=== PATIENT | female | born 1970 | race Caucasian/White ===

== ENCOUNTER 2020-07-19 03:37 | Emergency (ER) | payer MEDICAID ==
[~2020-07-19] VITALS: Ht 152.4 cm; Wt 73.0 kg
== END 2020-07-19 03:50 | disposition left against medical advice (07) ==
LOC: ER 03:49
DX: Z53.21 Procedure and treatment not carried out due to patient leaving prior to being seen by health care provider (principal)

== ENCOUNTER 2020-07-19 05:36 | Inpatient (IN) | payer MEDICAID, MEDICARE ==
[~2020-07-19] VITALS: Ht 152.4 cm; Wt 139.3 kg
[2020-07-19] MEDS ORDERED: ONDANSETRON HCL 4MG/2ML INJ IV STA (05:57)
[2020-07-19] MEDS ORDERED: MORPHINE SULFATE 4 MG/ML CPJ (NOT FOR IM USE) IV STA (05:57)
[2020-07-19] MEDS ORDERED: HALOPERIDOL LACTATE 5MG/ML VIAL IM STA (06:15)
[2020-07-19] MEDS ORDERED: LORAZEPAM 2MG/ML CPJ IM STA (06:15)
[2020-07-19 06:33] LABS: BASOPHILS % 0.5 % (0.0-2.0); EOSINOPHILS % 0.6 % (0.0-5.0); HEMATOCRIT. 41.8 % (36.0-48.0); HEMOGLOBIN. 13.8 g/dL (12.0-16.0); LYMPHOCYTES % 17.5 % (20.0-50.0); MEAN CORPUSCULAR HEMOGLOBIN 30.8 pg (28.0-32.0); MEAN CORPUSCULAR VOLUME 93.1 fL (81.0-99.0); MEAN PLATELET VOLUME 7.4 fl (7.4-10.4); MONOCYTES % 7.7 % (2.0-8.0); NEUTROPHILS % 73.7 % (40.0-76.0); PLATELET 295 x1000/uL (130-400); RED BLOOD CELL COUNT 4.49 mill/uL (4.2-5.4); RED CELL DISTRIBUTION WIDTH 13.9 % (11.6-14.6)
[2020-07-19 06:36] LABS: CHLORIDE 108 mEq/L (98-107)
[2020-07-19 06:41] LABS: ETHANOL BLOOD < 10 mg/dL
[2020-07-19 06:49] LABS: HCG SCREEN NEGATIVE
[2020-07-19] MEDS ORDERED: SODIUM CHLORIDE 0.9% 1,000 ML IV ONE ×3 (08:30→12:15)
[2020-07-19] MEDS ORDERED: KETAMINE HCL 50 MG/ML 10ML IV ONE (08:30)
[2020-07-19] MEDS ORDERED: MORPHINE SULFATE 10 MG/ML CPJ IV ONE (08:30)
[2020-07-19] MEDS ORDERED: PROPOFOL 200MG/20ML VIAL IV ONE (08:30)
[2020-07-19] MEDS ORDERED: LORAZEPAM 2MG/ML CPJ IV ONE (13:15)
[2020-07-19 13:52] LABS: BG BASE EXCESS -1.2 mmol/L (-2.0-2.0); BG CARBOXYHEMOGLOBIN 0.4 % (0.5-1.5); BG DEOXYHEMOGLOBIN 1.6 % (0.0-5.0); BG HCO3 ACT 27.7 mmol/L (22.0-26.0); BG METHEMOGLOBIN 0.2 % (0.0-1.5); BG OXYGEN SATURATION 98.4 % (92.0-98.5); BG OXYHEMOGLOBIN 97.8 % (94.0-97.0); BG PCO2 65.4 mmHg (35.0-45.0); BG PH 7.244 (7.350-7.450); BG PO2 136.1 mmHg (75.0-100.0); BG SAMPLE SITE LEFT RADIAL; BG TOTAL HEMOGLOBIN 14.2 g/dL (12.0-18.0); BG VENT MODE NASAL CANNULA
[2020-07-19] MEDS ORDERED: ETOMIDATE 2MG/ML 10ML VIAL IV ONE (14:30)
[2020-07-19] MEDS ORDERED: SUCCINYLCHOLINE CHLORIDE 200MG/10ML IV ONE (14:30)
[2020-07-19] MEDS ORDERED: SODIUM BICARBONATE 8.4% 1 MEQ/ML 50ML SYR IV ONE (14:30)
[2020-07-19] MEDS ORDERED: PROPOFOL 10MG/ML 100ML 100 ML IV SCH (14:30)
[2020-07-19 15:44] LABS: CREATINE KINASE 387 IU/L (26-192)
[2020-07-19 16:05] LABS: BG BASE EXCESS 2.8 mmol/L (-2.0-2.0); BG CARBOXYHEMOGLOBIN 0.2 % (0.5-1.5); BG DEOXYHEMOGLOBIN 4.2 % (0.0-5.0); BG FRACTION INSPIRED OXYGEN 60; BG HCO3 ACT 29.8 mmol/L (22.0-26.0); BG METHEMOGLOBIN 0.2 % (0.0-1.5); BG OXYGEN SATURATION 95.8 % (92.0-98.5); BG OXYHEMOGLOBIN 95.4 % (94.0-97.0); BG PCO2 56.3 mmHg (35.0-45.0); BG PH 7.342 (7.350-7.450); BG PO2 83.8 mmHg (75.0-100.0); BG SAMPLE SITE LEFT RADIAL; BG TOTAL HEMOGLOBIN 13.7 g/dL (12.0-18.0); BG TOTAL RESPIRATORY RATE 21 b/min; BG VENT MODE VENT - AC
[2020-07-19] MEDS ORDERED: DOCUSATE SODIUM 100MG CAPSULE PO PRN (16:45)
[2020-07-19] MEDS ORDERED: PROPOFOL 10MG/ML 100ML 100 ML IV PRN (16:45)
[2020-07-19] MEDS ORDERED: NA PHOS,M-B/NA PHOS,DI-BA ENEMA 118ML PR PRN (16:45)
[2020-07-19] MEDS ORDERED: PIPERACILLIN/TAZOBACTAM 3.375 G in DEXT 5% WATER 100 ML IV SCH (16:45)
[2020-07-19] MEDS ORDERED: CLONIDINE 0.1MG TABLET PO PRN (16:45)
[2020-07-19] MEDS ORDERED: ONDANSETRON HCL 4MG/2ML INJ IV PRN (16:45)
[2020-07-19] MEDS ORDERED: GUAIFENESIN 200MG/10ML SUGAR FREE UDC PO PRN (16:45)
[2020-07-19] MEDS ORDERED: LORAZEPAM 0.5MG TABLET PO PRN (16:45)
[2020-07-19] MEDS ORDERED: HYDROCODONE/ACETAMINOPHEN 5/325MG TABLET PO PRN (16:45)
[2020-07-19] MEDS ORDERED: DIPHENHYDRAMINE 50MG/ML VIAL IV PRN (16:45)
[2020-07-19] MEDS ORDERED: MAGNESIUM/ALUMINUM HYDROXIDE/SIMETHICONE 30ML UDC PO PRN (16:45)
[2020-07-19] MEDS: DEXT 5%/0.45% NACL 1000ML 1,000 ML IV SCH (17:49)
[2020-07-19] MEDS: PIPERACILLIN/TAZ 3.375G PREMIX 50 ML IV SCH (17:49)
[2020-07-19 18:14] LABS: PROTHROMBIN TIME 10.9 sec (9.6-11.0)
[2020-07-20] MEDS: PIPERACILLIN/TAZ 3.375G PREMIX 50 ML IV SCH ×4 (00:01→18:00)
[2020-07-20 00:52] LABS: CREATINE KINASE 593 IU/L (26-192)
[2020-07-20 01:05] LABS: CREATINE KINASE MB FRACTION 4.3 ng/mL (0.5-3.6)
[2020-07-20 04:35] LABS: BASOPHILS % 0.3 % (0.0-2.0); EOSINOPHILS % 1.8 % (0.0-5.0); HEMATOCRIT. 38.9 % (36.0-48.0); HEMOGLOBIN. 12.5 g/dL (12.0-16.0); LYMPHOCYTES % 21.8 % (20.0-50.0); MEAN CORPUSCULAR HEMOGLOBIN 30.4 pg (28.0-32.0); MEAN CORPUSCULAR VOLUME 94.7 fL (81.0-99.0); MEAN PLATELET VOLUME 7.4 fl (7.4-10.4); MONOCYTES % 8.6 % (2.0-8.0); NEUTROPHILS % 67.5 % (40.0-76.0); PLATELET 266 x1000/uL (130-400); RED BLOOD CELL COUNT 4.11 mill/uL (4.2-5.4); RED CELL DISTRIBUTION WIDTH 13.9 % (11.6-14.6)
[2020-07-20 04:42] LABS: CHLORIDE 108 mEq/L (98-107)
[2020-07-20 04:52] LABS: LDL CHOLESTEROL 75 mg/dL (5-100)
[2020-07-20 04:53] LABS: CREATINE KINASE 515 IU/L (26-192); T4 FREE 1.21 ng/dL (0.76-1.46)
[2020-07-20 04:54] LABS: CREATINE KINASE MB FRACTION 3.1 ng/mL (0.5-3.6); HDL CHOLESTEROL 48 mg/dL (40-59)
[2020-07-20] MEDS: DEXT 5%/0.45% NACL 1000ML 1,000 ML IV SCH ×2 (05:22→20:40)
[2020-07-20 08:35] LABS: BG BASE EXCESS 2.4 mmol/L (-2.0-2.0); BG CARBOXYHEMOGLOBIN 0.3 % (0.5-1.5); BG DEOXYHEMOGLOBIN 1.2 % (0.0-5.0); BG FRACTION INSPIRED OXYGEN 60; BG HCO3 ACT 27.3 mmol/L (22.0-26.0); BG METHEMOGLOBIN 0.4 % (0.0-1.5); BG OXYGEN SATURATION 98.8 % (92.0-98.5); BG OXYHEMOGLOBIN 98.1 % (94.0-97.0); BG PCO2 43.4 mmHg (35.0-45.0); BG PH 7.416 (7.350-7.450); BG PO2 132.3 mmHg (75.0-100.0); BG SAMPLE SITE RIGHT RADIAL; BG VENT MODE VENT - AC
[2020-07-20] MEDS: FAMOTIDINE 20MG/2ML VIAL IV SCH (09:43)
[2020-07-20] MEDS ORDERED: POTASSIUM CHLORIDE INJ 40 MEQ in DEXT 5% WATER 250 ML IV NR (13:00)
[2020-07-20 16:33] LABS: CLARITY URINE CLEAR (CLEAR); COLOR URINE YELLOW (YELLOW); KETONES URINE NEGATIVE (NEGATIVE); LEUKOCYTE ESTERASE URINE NEGATIVE (NEGATIVE); NITRITE URINE NEGATIVE (NEGATIVE); OCCULT BLOOD URINE NEGATIVE (NEGATIVE); PH URINE 6.5 (4.5-8.0); PROTEIN URINE NEGATIVE (NEGATIVE); SPECIFIC GRAVITY URINE 1.008 (1.005-1.030); UROBILINOGEN URINE 0.2 E.U./dL (0.2-1.0)
[2020-07-20 17:27] LABS: *AMPHETAMINES SCREEN URINE PRESUMTIVE POSITIVE (NEGATIVE)
[2020-07-20 17:29] LABS: *BARBITURATES SCREEN URINE NEGATIVE (NEGATIVE)
[2020-07-20 17:30] LABS: METHADONE URINE SCREEN NEGATIVE (NEGATIVE)
[2020-07-20 17:32] LABS: *BENZODIAZEPINES SCREEN URINE NEGATIVE (NEGATIVE); *COCAINE SCREEN URINE NEGATIVE (NEGATIVE); CANNABINOID URINE SCREEN NEGATIVE (NEGATIVE); OPIATES URINE SCREEN PRESUMTIVE POSITIVE (NEGATIVE)
[2020-07-20 17:33] LABS: PHENCYCLIDINE URINE SCREEN PRESUMTIVE POSITIVE (NEGATIVE)
[2020-07-20 18:35] LABS: BG BASE EXCESS 3.1 mmol/L (-2.0-2.0); BG DEOXYHEMOGLOBIN 1.2 % (0.0-5.0); BG FRACTION INSPIRED OXYGEN 60; BG HCO3 ACT 28.5 mmol/L (22.0-26.0); BG METHEMOGLOBIN 0.3 % (0.0-1.5); BG OXYGEN SATURATION 98.8 % (92.0-98.5); BG OXYHEMOGLOBIN 98.5 % (94.0-97.0); BG PCO2 46.7 mmHg (35.0-45.0); BG PH 7.404 (7.350-7.450); BG PO2 148.9 mmHg (75.0-100.0); BG SAMPLE SITE LEFT RADIAL; BG TOTAL HEMOGLOBIN 13.4 g/dL (12.0-18.0); BG VENT MODE VENT - AC
[2020-07-20] MEDS ORDERED: FENTANYL CITRATE 2,500 MCG in SODIUM CHLORIDE 0.9% 200 ML IV PRN (18:45)
[2020-07-20] MEDS ORDERED: MIDAZOLAM HCL 100 MG in DEXT 5% WATER 100 ML IV PRN (19:00)
[2020-07-21 04:06] LABS: BASOPHILS % 0.2 % (0.0-2.0); EOSINOPHILS % 6.5 % (0.0-5.0); HEMATOCRIT. 39.6 % (36.0-48.0); HEMOGLOBIN. 12.8 g/dL (12.0-16.0); LYMPHOCYTES % 20.2 % (20.0-50.0); MEAN CORPUSCULAR VOLUME 93.2 fL (81.0-99.0); MEAN PLATELET VOLUME 7.5 fl (7.4-10.4); NEUTROPHILS % 64.1 % (40.0-76.0); PLATELET 258 x1000/uL (130-400); RED BLOOD CELL COUNT 4.25 mill/uL (4.2-5.4); RED CELL DISTRIBUTION WIDTH 13.8 % (11.6-14.6)
[2020-07-21 04:11] LABS: CHLORIDE 108 mEq/L (98-107)
[2020-07-21 08:46] LABS: BG BASE EXCESS 2.4 mmol/L (-2.0-2.0); BG CARBOXYHEMOGLOBIN 0.2 % (0.5-1.5); BG DEOXYHEMOGLOBIN 2.1 % (0.0-5.0); BG FRACTION INSPIRED OXYGEN 60; BG HCO3 ACT 27.7 mmol/L (22.0-26.0); BG METHEMOGLOBIN 0.4 % (0.0-1.5); BG OXYGEN SATURATION 97.9 % (92.0-98.5); BG OXYHEMOGLOBIN 97.3 % (94.0-97.0); BG PCO2 45.7 mmHg (35.0-45.0); BG PH 7.401 (7.350-7.450); BG PO2 106.4 mmHg (75.0-100.0); BG SAMPLE SITE LEFT RADIAL; BG TOTAL HEMOGLOBIN 13.9 g/dL (12.0-18.0); BG VENT MODE VENT - AC
[2020-07-21] MEDS: DEXT 5%/0.45% NACL 1000ML 1,000 ML IV SCH (09:10)
[2020-07-21] MEDS: PIPERACILLIN/TAZ 3.375G PREMIX 50 ML IV SCH ×4 (09:10→18:26)
[2020-07-21] MEDS: FAMOTIDINE 20MG/2ML VIAL IV SCH (09:10)
[2020-07-21] MEDS: LORAZEPAM 2MG/ML CPJ IV PRN ×2 (11:07→14:50)
[2020-07-21] MEDS ORDERED: POTASSIUM CHLORIDE INJ 40 MEQ in DEXT 5% WATER 250 ML IV SCH (11:30)
[2020-07-21] MEDS ORDERED: HYDRALAZINE 20MG/ML VIAL IV STA (11:34)
[2020-07-21] MEDS ORDERED: METOPROLOL TARTRATE 25MG TABLET PO ONE (11:45)
[2020-07-21 12:54] LABS: BG BASE EXCESS 0.7 mmol/L (-2.0-2.0); BG CARBOXYHEMOGLOBIN 0.1 % (0.5-1.5); BG DEOXYHEMOGLOBIN 5.7 % (0.0-5.0); BG FRACTION INSPIRED OXYGEN 40; BG HCO3 ACT 25.7 mmol/L (22.0-26.0); BG METHEMOGLOBIN 0.1 % (0.0-1.5); BG OXYGEN SATURATION 94.3 % (92.0-98.5); BG OXYHEMOGLOBIN 94.1 % (94.0-97.0); BG PH 7.395 (7.350-7.450); BG PO2 71.1 mmHg (75.0-100.0); BG SAMPLE SITE LEFT RADIAL; BG TOTAL HEMOGLOBIN 13.5 g/dL (12.0-18.0); BG VENT MODE VENT - CPAP
[2020-07-21] MEDS ORDERED: DILTIAZEM HCL 5MG/ML 5ML VIAL IV SCH (13:00)
[2020-07-21] MEDS: DILTIAZEM HCL 30MG TABLET PO SCH (22:00)
[2020-07-22] MEDS: PIPERACILLIN/TAZ 3.375G PREMIX 50 ML IV SCH ×4 (00:35→18:32)
[2020-07-22] MEDS: DEXT 5%/0.45% NACL 1000ML 1,000 ML IV SCH ×2 (00:35→13:38)
[2020-07-22] MEDS: LORAZEPAM 2MG/ML CPJ IV PRN ×3 (00:40→14:37)
[2020-07-22 04:43] LABS: BASOPHILS % 0.5 % (0.0-2.0); CHLORIDE 105 mEq/L (98-107); EOSINOPHILS % 4.7 % (0.0-5.0); HEMATOCRIT. 36.4 % (36.0-48.0); HEMOGLOBIN. 12.1 g/dL (12.0-16.0); LYMPHOCYTES % 18.3 % (20.0-50.0); MEAN CORPUSCULAR HEMOGLOBIN 31.3 pg (28.0-32.0); MEAN CORPUSCULAR VOLUME 94.1 fL (81.0-99.0); MEAN PLATELET VOLUME 7.2 fl (7.4-10.4); MONOCYTES % 9.1 % (2.0-8.0); NEUTROPHILS % 67.4 % (40.0-76.0); PLATELET 266 x1000/uL (130-400); RED BLOOD CELL COUNT 3.87 mill/uL (4.2-5.4)
[2020-07-22] MEDS: DILTIAZEM HCL 30MG TABLET PO SCH ×3 (06:00→22:11)
[2020-07-22] MEDS ORDERED: MIDAZOLAM 100MG/100ML PMX 100 ML IV PRN (08:30)
[2020-07-22 10:53] LABS: BG BASE EXCESS 1.3 mmol/L (-2.0-2.0); BG CARBOXYHEMOGLOBIN 0.1 % (0.5-1.5); BG DEOXYHEMOGLOBIN 3.6 % (0.0-5.0); BG HCO3 ACT 25.7 mmol/L (22.0-26.0); BG METHEMOGLOBIN 0.1 % (0.0-1.5); BG OXYGEN SATURATION 96.4 % (92.0-98.5); BG OXYHEMOGLOBIN 96.2 % (94.0-97.0); BG PCO2 40.3 mmHg (35.0-45.0); BG PH 7.423 (7.350-7.450); BG PO2 82.2 mmHg (75.0-100.0); BG TOTAL HEMOGLOBIN 12.7 g/dL (12.0-18.0); BG VENT MODE VENT - AC
[2020-07-22 10:55] LABS: BG SAMPLE SITE LEFT RADIAL
[2020-07-22 10:56] LABS: BG FRACTION INSPIRED OXYGEN 40; BG PEEP (cmH2O) 5 cmH2O
[2020-07-22 11:40] LABS: BG CARBOXYHEMOGLOBIN 0.6 % (0.5-1.5); BG DEOXYHEMOGLOBIN 3.5 % (0.0-5.0); BG FRACTION INSPIRED OXYGEN 40; BG HCO3 ACT 28.2 mmol/L (22.0-26.0); BG METHEMOGLOBIN 0.6 % (0.0-1.5); BG OXYGEN SATURATION 96.5 % (92.0-98.5); BG OXYHEMOGLOBIN 95.3 % (94.0-97.0); BG PCO2 40.9 mmHg (35.0-45.0); BG PH 7.457 (7.350-7.450); BG PO2 81.6 mmHg (75.0-100.0); BG SAMPLE SITE LEFT RADIAL; BG TOTAL HEMOGLOBIN 13.4 g/dL (12.0-18.0); BG TOTAL RESPIRATORY RATE 25 b/min; BG VENT MODE VENT - CPAP
[2020-07-22] MEDS: FAMOTIDINE 20MG/2ML VIAL IV SCH (11:48)
[2020-07-22] MEDS ORDERED: MORPHINE SULFATE 2 MG/ML CPJ (NOT FOR IM USE) IV SCH (12:30)
[2020-07-22 18:28] LABS: BG BASE EXCESS 2.6 mmol/L (-2.0-2.0); BG CARBOXYHEMOGLOBIN 0.6 % (0.5-1.5); BG DEOXYHEMOGLOBIN 1.8 % (0.0-5.0); BG FRACTION INSPIRED OXYGEN 60; BG METHEMOGLOBIN 0.3 % (0.0-1.5); BG OXYGEN SATURATION 98.2 % (92.0-98.5); BG OXYHEMOGLOBIN 97.3 % (94.0-97.0); BG PCO2 40.7 mmHg (35.0-45.0); BG PH 7.439 (7.350-7.450); BG PO2 101.9 mmHg (75.0-100.0); BG SAMPLE SITE LEFT RADIAL; BG VENT MODE MASK - SIMPLE
[2020-07-23] MEDS: PIPERACILLIN/TAZ 3.375G PREMIX 50 ML IV SCH ×4 (00:23→20:34)
[2020-07-23] MEDS: DEXT 5%/0.45% NACL 1000ML 1,000 ML IV SCH ×2 (01:00→19:30)
[2020-07-23] MEDS ORDERED: ACETAMINOPHEN 325MG TABLET PO PRN (03:45)
[2020-07-23 04:04] LABS: BASOPHILS % 0.3 % (0.0-2.0); HEMATOCRIT. 37.9 % (36.0-48.0); HEMOGLOBIN. 12.5 g/dL (12.0-16.0); MEAN CORPUSCULAR HEMOGLOBIN 30.5 pg (28.0-32.0); MEAN CORPUSCULAR VOLUME 92.4 fL (81.0-99.0); MONOCYTES % 10.8 % (2.0-8.0); NEUTROPHILS % 74.9 % (40.0-76.0); PLATELET 249 x1000/uL (130-400); RED BLOOD CELL COUNT 4.11 mill/uL (4.2-5.4); RED CELL DISTRIBUTION WIDTH 13.7 % (11.6-14.6)
[2020-07-23 04:13] LABS: CHLORIDE 104 mEq/L (98-107)
[2020-07-23] MEDS: LORAZEPAM 2MG/ML CPJ IV PRN ×3 (04:55→21:52)
[2020-07-23] MEDS: DILTIAZEM HCL 30MG TABLET PO SCH ×3 (06:00→20:26)
[2020-07-23] MEDS: FAMOTIDINE 20MG/2ML VIAL IV SCH (09:00)
[2020-07-23] MEDS ORDERED: POTASSIUM CHLORIDE INJ 40 MEQ in DEXT 5% WATER 250 ML IV SCH (11:00)
[2020-07-23 11:50] LABS: BG BASE EXCESS 4.3 mmol/L (-2.0-2.0); BG CARBOXYHEMOGLOBIN 0.1 % (0.5-1.5); BG DEOXYHEMOGLOBIN 2.1 % (0.0-5.0); BG FRACTION INSPIRED OXYGEN 50; BG HCO3 ACT 28.7 mmol/L (22.0-26.0); BG METHEMOGLOBIN 0.3 % (0.0-1.5); BG OXYGEN SATURATION 97.9 % (92.0-98.5); BG OXYHEMOGLOBIN 97.5 % (94.0-97.0); BG PH 7.452 (7.350-7.450); BG PO2 97.5 mmHg (75.0-100.0); BG SAMPLE SITE LEFT RADIAL; BG TOTAL HEMOGLOBIN 12.7 g/dL (12.0-18.0); BG VENT MODE MASK - SIMPLE
[2020-07-23] MEDS ORDERED: METHYLPREDNISOLONE SOD SUCC 40 MG/ML VIAL IV NR (19:30)
[2020-07-23] MEDS ORDERED: ENOXAPARIN 40MG/0.4ML SYR SUBCUT SCH (20:00)
[2020-07-23 20:12] LABS: BG BASE EXCESS 4.8 mmol/L (-2.0-2.0); BG CARBOXYHEMOGLOBIN 0.3 % (0.5-1.5); BG DEOXYHEMOGLOBIN 4.1 % (0.0-5.0); BG FRACTION INSPIRED OXYGEN 50; BG HCO3 ACT 28.2 mmol/L (22.0-26.0); BG METHEMOGLOBIN 0.3 % (0.0-1.5); BG OXYGEN SATURATION 95.9 % (92.0-98.5); BG OXYHEMOGLOBIN 95.3 % (94.0-97.0); BG PCO2 37.6 mmHg (35.0-45.0); BG PH 7.493 (7.350-7.450); BG PO2 74.1 mmHg (75.0-100.0); BG SAMPLE SITE LEFT RADIAL; BG TOTAL HEMOGLOBIN 13.2 g/dL (12.0-18.0); BG VENT MODE MASK - SIMPLE
[2020-07-23] MEDS ORDERED: MIDAZOLAM HCL 100 MG in DEXT 5% WATER 80 ML IV ONE (23:15)
[2020-07-23] MEDS ORDERED: SUCCINYLCHOLINE CHLORIDE 200MG/10ML IV ONE ×2 (23:15→23:30)
[2020-07-23] MEDS ORDERED: ETOMIDATE 2MG/ML 10ML VIAL IV ONE (23:15)
[2020-07-23] MEDS ORDERED: MIDAZOLAM HCL 5 MG/5 ML VIAL IV ONE (23:30)
[2020-07-24] MEDS ORDERED: MIDAZOLAM HCL 100 MG in DEXT 5% WATER 80 ML IV PRN
[2020-07-24] MEDS: PIPERACILLIN/TAZ 3.375G PREMIX 50 ML IV SCH ×3 (00:53→13:48)
[2020-07-24 01:18] LABS: BG BASE EXCESS 2.7 mmol/L (-2.0-2.0); BG CARBOXYHEMOGLOBIN 0.3 % (0.5-1.5); BG DEOXYHEMOGLOBIN 3.1 % (0.0-5.0); BG FRACTION INSPIRED OXYGEN 50; BG HCO3 ACT 27.7 mmol/L (22.0-26.0); BG METHEMOGLOBIN 0.3 % (0.0-1.5); BG OXYGEN SATURATION 96.9 % (92.0-98.5); BG OXYHEMOGLOBIN 96.3 % (94.0-97.0); BG PCO2 44.2 mmHg (35.0-45.0); BG PH 7.415 (7.350-7.450); BG PO2 89.1 mmHg (75.0-100.0); BG SAMPLE SITE LEFT RADIAL; BG TOTAL HEMOGLOBIN 12.6 g/dL (12.0-18.0); BG TOTAL RESPIRATORY RATE 16 b/min; BG VENT MODE VENT - AC
[2020-07-24] MEDS: DILTIAZEM HCL 30MG TABLET PO SCH ×4 (02:00→22:55)
[2020-07-24] MEDS: DEXT 5%/0.45% NACL 1000ML 1,000 ML IV SCH ×2 (03:22→19:00)
[2020-07-24 04:08] LABS: BASOPHILS % 0.1 % (0.0-2.0); HEMATOCRIT. 35.8 % (36.0-48.0); LYMPHOCYTES % 7.9 % (20.0-50.0); MEAN CORPUSCULAR HEMOGLOBIN 31.1 pg (28.0-32.0); MEAN CORPUSCULAR VOLUME 92.8 fL (81.0-99.0); MONOCYTES % 2.6 % (2.0-8.0); NEUTROPHILS % 89.4 % (40.0-76.0); PLATELET 237 x1000/uL (130-400); RED BLOOD CELL COUNT 3.86 mill/uL (4.2-5.4); RED CELL DISTRIBUTION WIDTH 13.5 % (11.6-14.6)
[2020-07-24 04:11] LABS: CHLORIDE 102 mEq/L (98-107)
[2020-07-24] MEDS: IPRATROPIUM/ALBUTEROL 0.5-3(2.5)MG/3ML NEB HHN SCH ×2 (09:35→14:35)
[2020-07-24 10:38] LABS: BG BASE EXCESS 1.6 mmol/L (-2.0-2.0); BG CARBOXYHEMOGLOBIN 0.2 % (0.5-1.5); BG DEOXYHEMOGLOBIN 2.9 % (0.0-5.0); BG FRACTION INSPIRED OXYGEN 50; BG HCO3 ACT 26.5 mmol/L (22.0-26.0); BG METHEMOGLOBIN 0.2 % (0.0-1.5); BG OXYGEN SATURATION 97.1 % (92.0-98.5); BG OXYHEMOGLOBIN 96.7 % (94.0-97.0); BG PCO2 42.4 mmHg (35.0-45.0); BG PH 7.413 (7.350-7.450); BG PO2 92.2 mmHg (75.0-100.0); BG SAMPLE SITE LEFT RADIAL; BG TOTAL HEMOGLOBIN 12.5 g/dL (12.0-18.0); BG TOTAL RESPIRATORY RATE 17 b/min; BG VENT MODE VENT - AC
[2020-07-24] MEDS: FAMOTIDINE 20MG/2ML VIAL IV SCH (10:50)
[2020-07-24 16:20] LABS: HEMATOCRIT 38.4 % (36.0-48.0); HEMOGLOBIN 12.8 g/dL (12.0-16.0)
[2020-07-24] MEDS: HYDRALAZINE 20MG/ML VIAL IV PRN (22:55)
[2020-07-25] MEDS: DILTIAZEM HCL 30MG TABLET PO SCH ×4 (00:19→20:00)
[2020-07-25 04:47] LABS: CHLORIDE 98 mEq/L (98-107)
[2020-07-25 04:56] LABS: BASOPHILS % 0.1 % (0.0-2.0); HEMATOCRIT. 38.3 % (36.0-48.0); HEMOGLOBIN. 12.8 g/dL (12.0-16.0); LYMPHOCYTES % 11.8 % (20.0-50.0); MEAN CORPUSCULAR VOLUME 92.8 fL (81.0-99.0); MEAN PLATELET VOLUME 7.4 fl (7.4-10.4); MONOCYTES % 9.2 % (2.0-8.0); NEUTROPHILS % 78.9 % (40.0-76.0); PLATELET 281 x1000/uL (130-400); RED BLOOD CELL COUNT 4.12 mill/uL (4.2-5.4); RED CELL DISTRIBUTION WIDTH 13.5 % (11.6-14.6)
[2020-07-25] MEDS ORDERED: ACETAMINOPHEN 325MG TABLET PO PRN (06:00)
[2020-07-25] MEDS ORDERED: VANCOMYCIN 1 G PREMIX 200 ML IV NR (06:30)
[2020-07-25] MEDS: ACETAMINOPHEN 650MG SUPP PR PRN ×2 (06:33→22:33)
[2020-07-25 06:41] LABS: BASOPHILS % 0.6 % (0.0-2.0); EOSINOPHILS % 0.4 % (0.0-5.0); HEMATOCRIT. 38.2 % (36.0-48.0); HEMOGLOBIN. 12.7 g/dL (12.0-16.0); MEAN CORPUSCULAR HEMOGLOBIN 31.2 pg (28.0-32.0); MEAN CORPUSCULAR VOLUME 93.7 fL (81.0-99.0); MEAN PLATELET VOLUME 7.1 fl (7.4-10.4); MONOCYTES % 9.5 % (2.0-8.0); NEUTROPHILS % 75.5 % (40.0-76.0); PLATELET 275 x1000/uL (130-400); RED BLOOD CELL COUNT 4.08 mill/uL (4.2-5.4); RED CELL DISTRIBUTION WIDTH 13.8 % (11.6-14.6)
[2020-07-25 06:49] LABS: CHLORIDE 99 mEq/L (98-107)
[2020-07-25] MEDS: DEXT 5%/0.45% NACL 1000ML 1,000 ML IV SCH ×2 (07:30→20:00)
[2020-07-25 08:10] LABS: BG BASE EXCESS 5.2 mmol/L (-2.0-2.0); BG CARBOXYHEMOGLOBIN 0.3 % (0.5-1.5); BG DEOXYHEMOGLOBIN 3.8 % (0.0-5.0); BG METHEMOGLOBIN 0.2 % (0.0-1.5); BG OXYGEN SATURATION 96.2 % (92.0-98.5); BG OXYHEMOGLOBIN 95.7 % (94.0-97.0); BG PCO2 50.6 mmHg (35.0-45.0); BG PH 7.405 (7.350-7.450); BG PO2 80.9 mmHg (75.0-100.0); BG SAMPLE SITE LEFT RADIAL; BG TOTAL HEMOGLOBIN 13.3 g/dL (12.0-18.0); BG VENT MODE VENT - AC
[2020-07-25] MEDS ORDERED: AMIODARONE HCL 900 MG in DEXT 5% WATER 500 ML IV ONE (09:30)
[2020-07-25] MEDS ORDERED: AMIODARONE HCL 900 MG in DEXT 5% WATER 482 ML IV ONE (09:30)
[2020-07-25] MEDS ORDERED: NOREPINEPHRINE 8MG/250ML PMX 250 ML IV STA (09:32)
[2020-07-25] MEDS ORDERED: NOREPINEPHRINE 8 MG in DEXTROSE 5% WATER 250 ML IV ONE (09:45)
[2020-07-25] MEDS: METOPROLOL TARTRATE 50MG TABLET GT SCH ×2 (10:22→21:00)
[2020-07-25] MEDS: FAMOTIDINE 20MG/2ML VIAL IV SCH (11:30)
[2020-07-25] MEDS: MEROPENEM 1,000 MG in SODIUM CHLORIDE 0.9% 100 ML IV SCH ×2 (15:00→22:34)
[2020-07-25] MEDS ORDERED: SODIUM CHLORIDE 10% FOR INH 15ML VIAL NEB INH NR (17:00)
[2020-07-25] MEDS: NOREPINEPHRINE 8 MG in DEXTROSE 5% WATER 250 ML IV PRN (17:30)
[2020-07-25] MEDS: VANCOMYCIN 750 MG PREMIX 150 ML IV SCH (21:00)
[2020-07-25] MEDS: IPRATROPIUM/ALBUTEROL 0.5-3(2.5)MG/3ML NEB HHN SCH (21:33)
[2020-07-26] MEDS ORDERED: MIDAZOLAM HCL 100 MG in DEXT 5% WATER 100 ML IV PRN (00:15)
[2020-07-26] MEDS: DILTIAZEM HCL 30MG TABLET PO SCH ×4 (02:00→20:00)
[2020-07-26] MEDS: IPRATROPIUM/ALBUTEROL 0.5-3(2.5)MG/3ML NEB HHN SCH ×2 (03:36→20:48)
[2020-07-26 04:31] LABS: HEMATOCRIT. 37.9 % (36.0-48.0); HEMOGLOBIN. 12.2 g/dL (12.0-16.0); MEAN CORPUSCULAR HEMOGLOBIN 30.6 pg (28.0-32.0); MEAN CORPUSCULAR VOLUME 94.9 fL (81.0-99.0); MEAN PLATELET VOLUME 7.3 fl (7.4-10.4); PLATELET 265 x1000/uL (130-400); RED BLOOD CELL COUNT 3.99 mill/uL (4.2-5.4); RED CELL DISTRIBUTION WIDTH 13.7 % (11.6-14.6)
[2020-07-26 04:37] LABS: CHLORIDE 102 mEq/L (98-107)
[2020-07-26] MEDS: MEROPENEM 1,000 MG in SODIUM CHLORIDE 0.9% 100 ML IV SCH ×3 (06:18→22:07)
[2020-07-26] MEDS: VANCOMYCIN 750 MG PREMIX 150 ML IV SCH ×2 (06:52→19:00)
[2020-07-26 09:41] LABS: PLATELET ESTIMATE NORMAL
[2020-07-26 10:19] LABS: BG BASE EXCESS 0.7 mmol/L (-2.0-2.0); BG CARBOXYHEMOGLOBIN 0.3 % (0.5-1.5); BG DEOXYHEMOGLOBIN 13.7 % (0.0-5.0); BG FRACTION INSPIRED OXYGEN 50; BG HCO3 ACT 27.9 mmol/L (22.0-26.0); BG METHEMOGLOBIN 0.3 % (0.0-1.5); BG OXYGEN SATURATION 86.2 % (92.0-98.5); BG OXYHEMOGLOBIN 85.7 % (94.0-97.0); BG PCO2 55.7 mmHg (35.0-45.0); BG PH 7.318 (7.350-7.450); BG SAMPLE SITE LEFT BRACHIAL; BG TOTAL HEMOGLOBIN 14.2 g/dL (12.0-18.0); BG VENT MODE VENT - AC
[2020-07-26] MEDS: ACETAMINOPHEN 650MG SUPP PR PRN ×3 (10:45→18:05)
[2020-07-26] MEDS: DEXT 5%/0.45% NACL 1000ML 1,000 ML IV SCH ×2 (11:00→22:07)
[2020-07-26] MEDS ORDERED: DILTIAZEM HCL 5MG/ML 5ML VIAL IV NR (11:15)
[2020-07-26] MEDS: METOPROLOL TARTRATE 50MG TABLET GT SCH ×2 (11:25→21:00)
[2020-07-26] MEDS: FAMOTIDINE 20MG/2ML VIAL IV SCH (11:35)
[2020-07-27] VITALS (51 sets, daily range): BP systolic 108–154; BP diastolic 59–78
[2020-07-27] MEDS: IPRATROPIUM/ALBUTEROL 0.5-3(2.5)MG/3ML NEB HHN SCH ×3 (00:40→21:27)
[2020-07-27] MEDS: DILTIAZEM HCL 30MG TABLET PO SCH ×5 (02:00→20:56)
[2020-07-27 03:51] LABS: BASOPHILS % 0.3 % (0.0-2.0); EOSINOPHILS % 0.1 % (0.0-5.0); HEMATOCRIT. 35.3 % (36.0-48.0); HEMOGLOBIN. 11.9 g/dL (12.0-16.0); LYMPHOCYTES % 9.9 % (20.0-50.0); MEAN CORPUSCULAR HEMOGLOBIN 31.2 pg (28.0-32.0); MEAN CORPUSCULAR VOLUME 92.8 fL (81.0-99.0); MEAN PLATELET VOLUME 7.2 fl (7.4-10.4); MONOCYTES % 4.5 % (2.0-8.0); NEUTROPHILS % 85.2 % (40.0-76.0); PLATELET 265 x1000/uL (130-400); RED BLOOD CELL COUNT 3.81 mill/uL (4.2-5.4); RED CELL DISTRIBUTION WIDTH 13.9 % (11.6-14.6)
[2020-07-27 04:00] LABS: CHLORIDE 103 mEq/L (98-107)
[2020-07-27] MEDS: VANCOMYCIN 750 MG PREMIX 150 ML IV SCH ×2 (06:00→18:43)
[2020-07-27] MEDS: MEROPENEM 1,000 MG in SODIUM CHLORIDE 0.9% 100 ML IV SCH ×3 (06:19→22:00)
[2020-07-27 08:27] LABS: BG CARBOXYHEMOGLOBIN 0.2 % (0.5-1.5); BG DEOXYHEMOGLOBIN 16.3 % (0.0-5.0); BG HCO3 ACT 28.2 mmol/L (22.0-26.0); BG METHEMOGLOBIN 0.2 % (0.0-1.5); BG OXYGEN SATURATION 83.6 % (92.0-98.5); BG OXYHEMOGLOBIN 83.3 % (94.0-97.0); BG PCO2 50.9 mmHg (35.0-45.0); BG PH 7.362 (7.350-7.450); BG PO2 48.6 mmHg (75.0-100.0); BG SAMPLE SITE LEFT RADIAL; BG TOTAL HEMOGLOBIN 12.5 g/dL (12.0-18.0); BG VENT MODE VENT - AC
[2020-07-27] MEDS: METOPROLOL TARTRATE 50MG TABLET GT SCH ×2 (09:00→20:57)
[2020-07-27] MEDS: FAMOTIDINE 20MG/2ML VIAL IV SCH (09:45)
[2020-07-27] MEDS ORDERED: VANCOMYCIN 1 G PREMIX 200 ML IV SCH (10:00)
[2020-07-27] MEDS: DEXT 5%/0.45% NACL 1000ML 1,000 ML IV SCH (11:40)
[2020-07-27] MEDS: FENTANYL CITRATE/PF 2,500 MCG in SODIUM CHLORIDE 0.9% 200 ML IV PRN ×2 (13:50→23:50)
[2020-07-27] MEDS: MIDAZOLAM 100MG/100ML PREMIX IV PRN ×2 (14:17→23:49)
[2020-07-27] MEDS: NOREPINEPHRINE 8 MG in DEXTROSE 5% WATER 250 ML IV PRN (14:18)
[2020-07-27 17:21] LABS: BG BASE EXCESS 1.6 mmol/L (-2.0-2.0); BG CARBOXYHEMOGLOBIN 0.5 % (0.5-1.5); BG DEOXYHEMOGLOBIN 25.2 % (0.0-5.0); BG HCO3 ACT 30.7 mmol/L (22.0-26.0); BG METHEMOGLOBIN 0.4 % (0.0-1.5); BG OXYGEN SATURATION 74.6 % (92.0-98.5); BG OXYHEMOGLOBIN 73.9 % (94.0-97.0); BG PCO2 68.8 mmHg (35.0-45.0); BG PH 7.267 (7.350-7.450); BG PO2 42.2 mmHg (75.0-100.0); BG SAMPLE SITE LEFT RADIAL; BG TOTAL HEMOGLOBIN 15.1 g/dL (12.0-18.0); BG VENT MODE VENT - AC
[2020-07-27] MEDS ORDERED: PROPOFOL 10MG/ML 100ML 100 ML IV PRN (17:45)
[2020-07-27] MEDS: DEXAMETHASONE 10 MG/ML VIAL IV SCH (21:30)
[2020-07-28] VITALS (94 sets, daily range): BP systolic 95–141; BP diastolic 40–72
[2020-07-28] MEDS: DILTIAZEM HCL 30MG TABLET PO SCH ×4 (02:00→20:00)
[2020-07-28] MEDS: VANCOMYCIN 750 MG PREMIX 150 ML IV SCH ×2 (02:13→08:57)
[2020-07-28] MEDS: IPRATROPIUM/ALBUTEROL 0.5-3(2.5)MG/3ML NEB HHN SCH ×3 (02:58→19:52)
[2020-07-28] MEDS: DEXT 5%/0.45% NACL 1000ML 1,000 ML IV SCH ×3 (04:32→21:00)
[2020-07-28] MEDS: MIDAZOLAM 100MG/100ML PREMIX IV PRN ×3 (04:53→17:52)
[2020-07-28] MEDS: FENTANYL CITRATE/PF 2,500 MCG in SODIUM CHLORIDE 0.9% 200 ML IV PRN ×3 (04:53→23:11)
[2020-07-28] MEDS: MEROPENEM 1,000 MG in SODIUM CHLORIDE 0.9% 100 ML IV SCH ×3 (06:00→21:48)
[2020-07-28] MEDS: METOPROLOL TARTRATE 50MG TABLET GT SCH ×2 (08:21→21:00)
[2020-07-28 08:29] LABS: HEMATOCRIT. 32.4 % (36.0-48.0); MEAN CORPUSCULAR HEMOGLOBIN 31.5 pg (28.0-32.0); MEAN CORPUSCULAR VOLUME 92.8 fL (81.0-99.0); MEAN PLATELET VOLUME 7.6 fl (7.4-10.4); PLATELET 231 x1000/uL (130-400); RED CELL DISTRIBUTION WIDTH 13.9 % (11.6-14.6)
[2020-07-28 08:34] LABS: CHLORIDE 103 mEq/L (98-107)
[2020-07-28] MEDS: DEXAMETHASONE 10 MG/ML VIAL IV SCH (08:58)
[2020-07-28] MEDS: FAMOTIDINE 20MG/2ML VIAL IV SCH (08:58)
[2020-07-28 09:51] LABS: BG BASE EXCESS 2.4 mmol/L (-2.0-2.0); BG CARBOXYHEMOGLOBIN 0.2 % (0.5-1.5); BG DEOXYHEMOGLOBIN 0.6 % (0.0-5.0); BG FRACTION INSPIRED OXYGEN 100; BG HCO3 ACT 26.4 mmol/L (22.0-26.0); BG METHEMOGLOBIN 0.3 % (0.0-1.5); BG OXYGEN SATURATION 99.4 % (92.0-98.5); BG OXYHEMOGLOBIN 98.9 % (94.0-97.0); BG PCO2 38.8 mmHg (35.0-45.0); BG PH 7.451 (7.350-7.450); BG PO2 242.4 mmHg (75.0-100.0); BG SAMPLE SITE LEFT RADIAL; BG TOTAL HEMOGLOBIN 11.9 g/dL (12.0-18.0); BG TOTAL RESPIRATORY RATE 24 b/min; BG VENT MODE VENT - AC
[2020-07-28 10:51] LABS: PLATELET ESTIMATE NORMAL
[2020-07-28] MEDS: VANCOMYCIN 1 G PREMIX 200 ML IV SCH (23:03)
[2020-07-29] VITALS (94 sets, daily range): BP systolic 98–133; BP diastolic 44–77
[2020-07-29] MEDS: DILTIAZEM HCL 30MG TABLET PO SCH ×4 (02:00→20:00)
[2020-07-29] MEDS: IPRATROPIUM/ALBUTEROL 0.5-3(2.5)MG/3ML NEB HHN SCH ×4 (02:28→21:45)
[2020-07-29] MEDS: MIDAZOLAM 100MG/100ML PREMIX IV PRN ×3 (03:17→19:36)
[2020-07-29] MEDS: MEROPENEM 1,000 MG in SODIUM CHLORIDE 0.9% 100 ML IV SCH ×2 (05:16→13:32)
[2020-07-29] MEDS: FENTANYL CITRATE/PF 2,500 MCG in SODIUM CHLORIDE 0.9% 200 ML IV PRN ×3 (06:41→22:01)
[2020-07-29 07:27] LABS: CHLORIDE 105 mEq/L (98-107)
[2020-07-29] MEDS: DEXAMETHASONE 10 MG/ML VIAL IV SCH (09:00)
[2020-07-29] MEDS: FAMOTIDINE 20MG/2ML VIAL IV SCH (10:48)
[2020-07-29] MEDS: VANCOMYCIN 1 G PREMIX 200 ML IV SCH (10:49)
[2020-07-29] MEDS: METOPROLOL TARTRATE 50MG TABLET GT SCH ×2 (10:49→21:00)
[2020-07-29] MEDS: DEXT 5%/0.45% NACL 1000ML 1,000 ML IV SCH (12:33)
[2020-07-29 12:59] LABS: BG BASE EXCESS -1.2 mmol/L (-2.0-2.0); BG DEOXYHEMOGLOBIN 1.5 % (0.0-5.0); BG FRACTION INSPIRED OXYGEN 100; BG HCO3 ACT 24.4 mmol/L (22.0-26.0); BG METHEMOGLOBIN 0.3 % (0.0-1.5); BG OXYGEN SATURATION 98.5 % (92.0-98.5); BG OXYHEMOGLOBIN 98.2 % (94.0-97.0); BG PCO2 43.9 mmHg (35.0-45.0); BG PH 7.362 (7.350-7.450); BG PO2 127.6 mmHg (75.0-100.0); BG SAMPLE SITE LEFT BRACHIAL; BG TOTAL HEMOGLOBIN 12.5 g/dL (12.0-18.0); BG VENT MODE VENT - AC
[2020-07-29] MEDS: METRONIDAZOLE 500MG TABLET PO SCH ×2 (15:03→22:00)
[2020-07-29] MEDS: CEFTRIAXONE 1,000 MG in DEXTROSE 5% WATER 50 ML IV SCH (15:17)
[2020-07-30] VITALS (95 sets, daily range): BP systolic 80–182; BP diastolic 44–89
[2020-07-30] MEDS: DEXT 5%/0.45% NACL 1000ML 1,000 ML IV SCH (01:14)
[2020-07-30] MEDS: DILTIAZEM HCL 30MG TABLET PO SCH ×4 (02:00→21:30)
[2020-07-30] MEDS: IPRATROPIUM/ALBUTEROL 0.5-3(2.5)MG/3ML NEB HHN SCH ×4 (04:17→19:53)
[2020-07-30] MEDS: MIDAZOLAM 100MG/100ML PREMIX IV PRN ×4 (04:59→23:26)
[2020-07-30 05:57] LABS: CHLORIDE 106 mEq/L (98-107)
[2020-07-30 05:59] LABS: HEMATOCRIT. 32.5 % (36.0-48.0); HEMOGLOBIN. 10.8 g/dL (12.0-16.0); MEAN CORPUSCULAR HEMOGLOBIN 30.8 pg (28.0-32.0); MEAN PLATELET VOLUME 8.2 fl (7.4-10.4); PLATELET 280 x1000/uL (130-400); RED CELL DISTRIBUTION WIDTH 13.8 % (11.6-14.6)
[2020-07-30] MEDS: FENTANYL CITRATE/PF 2,500 MCG in SODIUM CHLORIDE 0.9% 200 ML IV PRN ×2 (06:33→16:13)
[2020-07-30 08:42] LABS: BG BASE EXCESS -3.5 mmol/L (-2.0-2.0); BG CARBOXYHEMOGLOBIN 0.3 % (0.5-1.5); BG DEOXYHEMOGLOBIN 18.2 % (0.0-5.0); BG HCO3 ACT 21.2 mmol/L (22.0-26.0); BG METHEMOGLOBIN 0.1 % (0.0-1.5); BG OXYGEN SATURATION 81.7 % (92.0-98.5); BG OXYHEMOGLOBIN 81.4 % (94.0-97.0); BG PCO2 36.8 mmHg (35.0-45.0); BG PH 7.378 (7.350-7.450); BG PO2 46.4 mmHg (75.0-100.0); BG SAMPLE SITE LEFT RADIAL; BG TOTAL HEMOGLOBIN 11.8 g/dL (12.0-18.0); BG VENT MODE VENT - AC
[2020-07-30] MEDS: FAMOTIDINE 20MG/2ML VIAL IV SCH (09:53)
[2020-07-30] MEDS: METOPROLOL TARTRATE 50MG TABLET GT SCH ×2 (09:53→21:30)
[2020-07-30] MEDS: DEXAMETHASONE 10 MG/ML VIAL IV SCH (09:53)
[2020-07-30] MEDS: METRONIDAZOLE 500MG TABLET PO SCH ×2 (09:53→21:30)
[2020-07-30 15:52] LABS: PLATELET ESTIMATE NORMAL
[2020-07-30] MEDS: CEFTRIAXONE 1,000 MG in DEXTROSE 5% WATER 50 ML IV SCH (16:46)
[2020-07-30] MEDS: ENOXAPARIN 30MG/0.3ML SYR SUBCUT SCH (21:29)
[2020-07-30] MEDS: ACETAMINOPHEN 650MG/20.3ML UDC PO PRN (23:42)
[2020-07-31] VITALS (101 sets, daily range): BP systolic 57–183; BP diastolic 31–113
[2020-07-31] MEDS: IPRATROPIUM/ALBUTEROL 0.5-3(2.5)MG/3ML NEB HHN SCH ×3 (00:20→15:19)
[2020-07-31] MEDS: FENTANYL CITRATE/PF 2,500 MCG in SODIUM CHLORIDE 0.9% 200 ML IV PRN ×4 (01:06→22:20)
[2020-07-31] MEDS: DILTIAZEM HCL 30MG TABLET PO SCH ×4 (02:00→21:35)
[2020-07-31] MEDS: MIDAZOLAM 100MG/100ML PREMIX IV PRN ×3 (04:11→20:27)
[2020-07-31] MEDS: DEXT 5%/0.45% NACL 1000ML 1,000 ML IV SCH ×3 (04:12→09:34)
[2020-07-31] MEDS: ACETAMINOPHEN 650MG/20.3ML UDC PO PRN ×2 (05:25→09:32)
[2020-07-31 05:44] LABS: HEMATOCRIT. 33.9 % (36.0-48.0); MEAN CORPUSCULAR HEMOGLOBIN 30.2 pg (28.0-32.0); MEAN PLATELET VOLUME 7.9 fl (7.4-10.4); PLATELET 216 x1000/uL (130-400); RED BLOOD CELL COUNT 3.64 mill/uL (4.2-5.4); RED CELL DISTRIBUTION WIDTH 14.1 % (11.6-14.6)
[2020-07-31] MEDS: METOPROLOL TARTRATE 50MG TABLET GT SCH ×2 (08:01→21:41)
[2020-07-31] MEDS: NOREPINEPHRINE 8 MG in DEXTROSE 5% WATER 250 ML IV PRN ×2 (08:02→17:09)
[2020-07-31] MEDS: PROPOFOL 10MG/ML 100ML 100 ML IV PRN ×5 (08:40→22:16)
[2020-07-31] MEDS ORDERED: DEXAMETHASONE 10 MG/ML VIAL IV SCH (09:00)
[2020-07-31] MEDS: METRONIDAZOLE 500MG TABLET PO SCH ×2 (09:32→22:22)
[2020-07-31] MEDS: ENOXAPARIN 30MG/0.3ML SYR SUBCUT SCH (09:32)
[2020-07-31 09:43] LABS: BG BASE EXCESS -4.7 mmol/L (-2.0-2.0); BG CARBOXYHEMOGLOBIN 0.2 % (0.5-1.5); BG DEOXYHEMOGLOBIN 13.1 % (0.0-5.0); BG FRACTION INSPIRED OXYGEN 100; BG HCO3 ACT 22.3 mmol/L (22.0-26.0); BG METHEMOGLOBIN 0.1 % (0.0-1.5); BG OXYGEN SATURATION 86.9 % (92.0-98.5); BG OXYHEMOGLOBIN 86.6 % (94.0-97.0); BG PCO2 49.3 mmHg (35.0-45.0); BG PH 7.273 (7.350-7.450); BG PO2 57.2 mmHg (75.0-100.0); BG SAMPLE SITE RIGHT RADIAL; BG TOTAL HEMOGLOBIN 12.4 g/dL (12.0-18.0); BG TOTAL RESPIRATORY RATE 33 b/min; BG VENT MODE VENT - AC
[2020-07-31 10:14] LABS: PLATELET ESTIMATE NORMAL
[2020-07-31] MEDS ORDERED: SODIUM BICARBONATE 8.4% 1 MEQ/ML 50ML SYR IV NR (10:45)
[2020-07-31] MEDS: FAMOTIDINE 20MG/2ML VIAL IV SCH (11:14)
[2020-07-31] MEDS ORDERED: ENOXAPARIN 80MG/0.8ML SYR SUBCUT NR (12:30)
[2020-07-31] MEDS: CEFTRIAXONE 1,000 MG in DEXTROSE 5% WATER 50 ML IV SCH (15:38)
[2020-07-31] MEDS: METHYLPREDNISOLONE SOD SUCC 40 MG/ML VIAL IV SCH ×2 (15:40→21:41)
[2020-07-31] MEDS: ENOXAPARIN 120MG/0.8ML SYR SUBCUT SCH (21:42)
[2020-08-01] VITALS (97 sets, daily range): BP systolic 83–208; BP diastolic 31–119
[2020-08-01] MEDS: PROPOFOL 10MG/ML 100ML 100 ML IV PRN ×6 (00:50→22:16)
[2020-08-01] MEDS: DILTIAZEM HCL 30MG TABLET PO SCH ×4 (02:00→20:00)
[2020-08-01] MEDS: MIDAZOLAM HCL 100 MG in SODIUM CHLORIDE 0.9% 100 ML IV PRN ×2 (02:19→11:50)
[2020-08-01] MEDS: NOREPINEPHRINE 8 MG in DEXTROSE 5% WATER 250 ML IV PRN ×2 (03:22→19:00)
[2020-08-01] MEDS: IPRATROPIUM/ALBUTEROL 0.5-3(2.5)MG/3ML NEB HHN SCH ×4 (03:42→22:00)
[2020-08-01] MEDS: METHYLPREDNISOLONE SOD SUCC 40 MG/ML VIAL IV SCH ×3 (05:09→21:37)
[2020-08-01 05:56] LABS: HEMATOCRIT. 34.2 % (36.0-48.0); HEMOGLOBIN. 11.2 g/dL (12.0-16.0); MEAN CORPUSCULAR HEMOGLOBIN 30.6 pg (28.0-32.0); MEAN CORPUSCULAR VOLUME 93.5 fL (81.0-99.0); PLATELET 231 x1000/uL (130-400); RED BLOOD CELL COUNT 3.66 mill/uL (4.2-5.4); RED CELL DISTRIBUTION WIDTH 14.2 % (11.6-14.6)
[2020-08-01] MEDS: FENTANYL CITRATE/PF 2,500 MCG in SODIUM CHLORIDE 0.9% 200 ML IV PRN ×3 (06:11→20:28)
[2020-08-01 07:28] LABS: PLATELET ESTIMATE NORMAL
[2020-08-01] MEDS: DEXT 5%/0.45% NACL 1000ML 1,000 ML IV SCH ×3 (08:32→22:59)
[2020-08-01] MEDS: METOPROLOL TARTRATE 50MG TABLET GT SCH ×2 (09:00→20:46)
[2020-08-01] MEDS: ENOXAPARIN 120MG/0.8ML SYR SUBCUT SCH ×2 (09:07→21:37)
[2020-08-01] MEDS: FAMOTIDINE 20MG/2ML VIAL IV SCH (09:08)
[2020-08-01] MEDS: METRONIDAZOLE 500MG TABLET PO SCH ×2 (09:08→21:36)
[2020-08-01 09:49] LABS: BG BASE EXCESS -6.5 mmol/L (-2.0-2.0); BG CARBOXYHEMOGLOBIN 0.7 % (0.5-1.5); BG DEOXYHEMOGLOBIN 1.3 % (0.0-5.0); BG FRACTION INSPIRED OXYGEN 100; BG HCO3 ACT 21.2 mmol/L (22.0-26.0); BG METHEMOGLOBIN 0.2 % (0.0-1.5); BG OXYGEN SATURATION 98.7 % (92.0-98.5); BG OXYHEMOGLOBIN 97.8 % (94.0-97.0); BG PCO2 51.2 mmHg (35.0-45.0); BG PH 7.234 (7.350-7.450); BG PO2 143.1 mmHg (75.0-100.0); BG SAMPLE SITE LEFT RADIAL; BG TOTAL HEMOGLOBIN 12.1 g/dL (12.0-18.0); BG TOTAL RESPIRATORY RATE 24 b/min; BG VENT MODE VENT - AC
[2020-08-01] MEDS ORDERED: SODIUM BICARBONATE 8.4% 1 MEQ/ML 50ML SYR IV SCH (11:00)
[2020-08-01 14:53] LABS: BG BASE EXCESS -3.6 mmol/L (-2.0-2.0); BG CARBOXYHEMOGLOBIN 0.3 % (0.5-1.5); BG DEOXYHEMOGLOBIN 0.9 % (0.0-5.0); BG FRACTION INSPIRED OXYGEN 100; BG HCO3 ACT 23.8 mmol/L (22.0-26.0); BG METHEMOGLOBIN 0.5 % (0.0-1.5); BG OXYGEN SATURATION 99.1 % (92.0-98.5); BG OXYHEMOGLOBIN 98.3 % (94.0-97.0); BG PCO2 53.1 mmHg (35.0-45.0); BG PH 7.269 (7.350-7.450); BG PO2 247.5 mmHg (75.0-100.0); BG SAMPLE SITE LEFT RADIAL; BG TOTAL HEMOGLOBIN 12.4 g/dL (12.0-18.0); BG TOTAL RESPIRATORY RATE 24 b/min; BG VENT MODE VENT - AC
[2020-08-01] MEDS: CEFTRIAXONE 1,000 MG in DEXTROSE 5% WATER 50 ML IV SCH (17:35)
[2020-08-01] MEDS: MIDAZOLAM 100MG/100ML PMX 100 ML IV PRN (18:49)
[2020-08-01] MEDS ORDERED: LACTULOSE 20G/30ML UDC NG PRN (21:30)
[2020-08-02] VITALS (97 sets, daily range): BP systolic 85–156; BP diastolic 41–85
[2020-08-02] MEDS: MIDAZOLAM 100MG/100ML PMX 100 ML IV PRN ×3 (00:52→17:20)
[2020-08-02] MEDS: DILTIAZEM HCL 30MG TABLET PO SCH ×4 (01:23→20:00)
[2020-08-02] MEDS: IPRATROPIUM/ALBUTEROL 0.5-3(2.5)MG/3ML NEB HHN SCH ×3 (03:56→20:45)
[2020-08-02] MEDS: FENTANYL CITRATE/PF 2,500 MCG in SODIUM CHLORIDE 0.9% 200 ML IV PRN ×3 (04:01→22:26)
[2020-08-02] MEDS: PROPOFOL 10MG/ML 100ML 100 ML IV PRN (04:03)
[2020-08-02] MEDS: METHYLPREDNISOLONE SOD SUCC 40 MG/ML VIAL IV SCH ×3 (05:01→22:10)
[2020-08-02 05:36] LABS: HEMATOCRIT. 32.8 % (36.0-48.0); HEMOGLOBIN. 10.6 g/dL (12.0-16.0); MEAN CORPUSCULAR HEMOGLOBIN 30.5 pg (28.0-32.0); MEAN CORPUSCULAR VOLUME 94.2 fL (81.0-99.0); MEAN PLATELET VOLUME 8.8 fl (7.4-10.4); PLATELET 307 x1000/uL (130-400); RED BLOOD CELL COUNT 3.48 mill/uL (4.2-5.4); RED CELL DISTRIBUTION WIDTH 14.3 % (11.6-14.6)
[2020-08-02 05:43] LABS: PHOSPHORUS 2.8 mg/dL (2.5-4.9)
[2020-08-02 08:46] LABS: BG BASE EXCESS -5.4 mmol/L (-2.0-2.0); BG CARBOXYHEMOGLOBIN 0.3 % (0.5-1.5); BG DEOXYHEMOGLOBIN 6.3 % (0.0-5.0); BG HCO3 ACT 20.6 mmol/L (22.0-26.0); BG METHEMOGLOBIN 0.3 % (0.0-1.5); BG OXYGEN SATURATION 93.7 % (92.0-98.5); BG OXYHEMOGLOBIN 93.1 % (94.0-97.0); BG PCO2 42.5 mmHg (35.0-45.0); BG PH 7.304 (7.350-7.450); BG PO2 73.2 mmHg (75.0-100.0); BG SAMPLE SITE RIGHT RADIAL; BG TOTAL HEMOGLOBIN 11.2 g/dL (12.0-18.0); BG VENT MODE VENT - AC
[2020-08-02] MEDS: ENOXAPARIN 120MG/0.8ML SYR SUBCUT SCH ×2 (08:59→22:09)
[2020-08-02] MEDS: METRONIDAZOLE 500MG TABLET PO SCH ×2 (08:59→22:11)
[2020-08-02] MEDS: LACTULOSE 20G/30ML UDC NG SCH (08:59)
[2020-08-02] MEDS: FAMOTIDINE 20MG/2ML VIAL IV SCH (08:59)
[2020-08-02] MEDS: METOPROLOL TARTRATE 50MG TABLET GT SCH ×2 (09:00→22:09)
[2020-08-02] MEDS ORDERED: SODIUM BICARBONATE 8.4% 1 MEQ/ML 50ML SYR IV NR (09:30)
[2020-08-02] MEDS: SODIUM BICARBONATE 50 MEQ in DEXT 5%/0.45% NACL 1000ML 1,000 ML IV SCH (13:01)
[2020-08-02 14:29] LABS: PLATELET ESTIMATE NORMAL
[2020-08-02] MEDS: CEFTRIAXONE 1,000 MG in DEXTROSE 5% WATER 50 ML IV SCH (16:38)
[2020-08-03] VITALS (87 sets, daily range): BP systolic 124–159; BP diastolic 57–86
[2020-08-03] MEDS: DILTIAZEM HCL 30MG TABLET PO SCH ×4 (01:16→20:00)
[2020-08-03] MEDS: MIDAZOLAM 100MG/100ML PMX 100 ML IV PRN ×3 (01:37→13:11)
[2020-08-03] MEDS: SODIUM BICARBONATE 50 MEQ in DEXT 5%/0.45% NACL 1000ML 1,000 ML IV SCH ×2 (02:44→16:14)
[2020-08-03] MEDS: PROPOFOL 10MG/ML 100ML 100 ML IV PRN ×2 (02:58→13:11)
[2020-08-03] MEDS: FENTANYL CITRATE/PF 2,500 MCG in SODIUM CHLORIDE 0.9% 200 ML IV PRN ×3 (02:59→19:16)
[2020-08-03] MEDS: IPRATROPIUM/ALBUTEROL 0.5-3(2.5)MG/3ML NEB HHN SCH ×4 (03:00→20:28)
[2020-08-03] MEDS: METHYLPREDNISOLONE SOD SUCC 40 MG/ML VIAL IV SCH ×3 (05:41→22:00)
[2020-08-03 05:49] LABS: HEMATOCRIT. 32.7 % (36.0-48.0); HEMOGLOBIN. 10.8 g/dL (12.0-16.0); MEAN CORPUSCULAR HEMOGLOBIN 30.4 pg (28.0-32.0); MEAN CORPUSCULAR VOLUME 92.4 fL (81.0-99.0); MEAN PLATELET VOLUME 8.6 fl (7.4-10.4); PLATELET 410 x1000/uL (130-400); RED BLOOD CELL COUNT 3.54 mill/uL (4.2-5.4); RED CELL DISTRIBUTION WIDTH 14.3 % (11.6-14.6)
[2020-08-03] MEDS: METOPROLOL TARTRATE 50MG TABLET GT SCH ×2 (09:51→21:00)
[2020-08-03] MEDS: ENOXAPARIN 120MG/0.8ML SYR SUBCUT SCH ×2 (09:51→21:00)
[2020-08-03] MEDS: FAMOTIDINE 20MG/2ML VIAL IV SCH (09:52)
[2020-08-03] MEDS: METRONIDAZOLE 500MG TABLET PO SCH ×2 (09:52→21:00)
[2020-08-03] MEDS: LACTULOSE 20G/30ML UDC NG SCH (09:52)
[2020-08-03 11:12] LABS: BG CARBOXYHEMOGLOBIN 0.3 % (0.5-1.5); BG DEOXYHEMOGLOBIN 1.1 % (0.0-5.0); BG FRACTION INSPIRED OXYGEN 100; BG HCO3 ACT 23.2 mmol/L (22.0-26.0); BG METHEMOGLOBIN 0.3 % (0.0-1.5); BG OXYGEN SATURATION 98.9 % (92.0-98.5); BG OXYHEMOGLOBIN 98.3 % (94.0-97.0); BG PCO2 41.3 mmHg (35.0-45.0); BG PH 7.367 (7.350-7.450); BG PO2 187.7 mmHg (75.0-100.0); BG SAMPLE SITE LEFT RADIAL; BG TOTAL HEMOGLOBIN 11.3 g/dL (12.0-18.0); BG TOTAL RESPIRATORY RATE 26 b/min; BG VENT MODE VENT - AC
[2020-08-03 16:14] LABS: PLATELET ESTIMATE SLIGHTLY INCREASED
[2020-08-03] MEDS: CEFTRIAXONE 1,000 MG in DEXTROSE 5% WATER 50 ML IV SCH (19:15)
[2020-08-04] VITALS (81 sets, daily range): BP systolic 117–163; BP diastolic 54–99
[2020-08-04] MEDS: DILTIAZEM HCL 30MG TABLET PO SCH ×4 (02:00→21:42)
[2020-08-04] MEDS: IPRATROPIUM/ALBUTEROL 0.5-3(2.5)MG/3ML NEB HHN SCH ×4 (03:56→21:46)
[2020-08-04] MEDS: FENTANYL CITRATE/PF 2,500 MCG in SODIUM CHLORIDE 0.9% 200 ML IV PRN ×4 (04:57→19:34)
[2020-08-04 05:14] LABS: HEMATOCRIT. 32.1 % (36.0-48.0); HEMOGLOBIN. 10.5 g/dL (12.0-16.0); MEAN CORPUSCULAR HEMOGLOBIN 30.2 pg (28.0-32.0); MEAN CORPUSCULAR VOLUME 92.6 fL (81.0-99.0); MEAN PLATELET VOLUME 8.4 fl (7.4-10.4); PLATELET 427 x1000/uL (130-400); RED BLOOD CELL COUNT 3.47 mill/uL (4.2-5.4); RED CELL DISTRIBUTION WIDTH 14.4 % (11.6-14.6)
[2020-08-04] MEDS: PROPOFOL 10MG/ML 100ML 100 ML IV PRN ×4 (08:33→22:32)
[2020-08-04] MEDS: METHYLPREDNISOLONE SOD SUCC 40 MG/ML VIAL IV SCH ×3 (09:41→21:42)
[2020-08-04] MEDS: LACTULOSE 20G/30ML UDC NG SCH (09:42)
[2020-08-04] MEDS: MIDAZOLAM 100MG/100ML PMX 100 ML IV PRN ×2 (09:42→17:48)
[2020-08-04] MEDS: FAMOTIDINE 20MG/2ML VIAL IV SCH (09:42)
[2020-08-04] MEDS: METOPROLOL TARTRATE 50MG TABLET GT SCH ×2 (09:43→21:43)
[2020-08-04] MEDS: ENOXAPARIN 120MG/0.8ML SYR SUBCUT SCH ×2 (09:44→21:43)
[2020-08-04] MEDS: SODIUM BICARBONATE 50 MEQ in DEXT 5%/0.45% NACL 1000ML 1,000 ML IV SCH (09:44)
[2020-08-04] MEDS ORDERED: SODIUM POLYSTYRENE SULFONATE 15 G/60 ML BOT PO NR (10:00)
[2020-08-04 10:14] LABS: BG BASE EXCESS -2.7 mmol/L (-2.0-2.0); BG CARBOXYHEMOGLOBIN 0.2 % (0.5-1.5); BG DEOXYHEMOGLOBIN 16.3 % (0.0-5.0); BG FRACTION INSPIRED OXYGEN 100; BG HCO3 ACT 23.5 mmol/L (22.0-26.0); BG METHEMOGLOBIN 0.2 % (0.0-1.5); BG OXYGEN SATURATION 83.6 % (92.0-98.5); BG OXYHEMOGLOBIN 83.3 % (94.0-97.0); BG PCO2 46.4 mmHg (35.0-45.0); BG PH 7.322 (7.350-7.450); BG PO2 52.8 mmHg (75.0-100.0); BG SAMPLE SITE LEFT RADIAL; BG TOTAL HEMOGLOBIN 11.3 g/dL (12.0-18.0); BG VENT MODE VENT - AC
[2020-08-04 11:59] LABS: PLATELET ESTIMATE SLIGHTLY INCREASED
[2020-08-05] VITALS (96 sets, daily range): BP systolic 87–153; BP diastolic 39–80
[2020-08-05] MEDS: MIDAZOLAM 100MG/100ML PMX 100 ML IV PRN ×4 (00:14→20:34)
[2020-08-05] MEDS: SODIUM BICARBONATE 50 MEQ in DEXT 5%/0.45% NACL 1000ML 1,000 ML IV SCH ×3 (01:26→16:53)
[2020-08-05] MEDS: DILTIAZEM HCL 30MG TABLET PO SCH ×4 (01:28→21:09)
[2020-08-05] MEDS: PROPOFOL 10MG/ML 100ML 100 ML IV PRN ×5 (02:11→21:45)
[2020-08-05] MEDS: IPRATROPIUM/ALBUTEROL 0.5-3(2.5)MG/3ML NEB HHN SCH ×2 (03:27→21:27)
[2020-08-05] MEDS: FENTANYL CITRATE/PF 2,500 MCG in SODIUM CHLORIDE 0.9% 200 ML IV PRN ×3 (04:08→18:39)
[2020-08-05 05:48] LABS: HEMATOCRIT. 33.5 % (36.0-48.0); MEAN CORPUSCULAR HEMOGLOBIN 30.4 pg (28.0-32.0); MEAN CORPUSCULAR VOLUME 93.1 fL (81.0-99.0); MEAN PLATELET VOLUME 8.7 fl (7.4-10.4); PLATELET 406 x1000/uL (130-400); RED CELL DISTRIBUTION WIDTH 14.5 % (11.6-14.6)
[2020-08-05] MEDS ORDERED: SODIUM BICARBONATE 8.4% 1 MEQ/ML 50ML SYR IV SCH ×2 (06:30→12:00)
[2020-08-05] MEDS: METHYLPREDNISOLONE SOD SUCC 40 MG/ML VIAL IV SCH ×2 (06:40→13:01)
[2020-08-05] MEDS ORDERED: SODIUM POLYSTYRENE SULFONATE 15 G/60 ML BOT PO SCH (08:00)
[2020-08-05] MEDS: LACTULOSE 20G/30ML UDC NG SCH (08:13)
[2020-08-05] MEDS: FAMOTIDINE 20MG/2ML VIAL IV SCH (08:14)
[2020-08-05] MEDS: METOPROLOL TARTRATE 50MG TABLET GT SCH ×2 (08:14→21:10)
[2020-08-05] MEDS: ENOXAPARIN 120MG/0.8ML SYR SUBCUT SCH ×2 (08:15→21:08)
[2020-08-05 08:31] LABS: PLATELET ESTIMATE SLIGHTLY INCREASED
[2020-08-05] MEDS ORDERED: INSULIN REGULAR (HUMULIN R) 300UNITS/3ML VIAL IV SCH (12:00)
[2020-08-05] MEDS ORDERED: DEXTROSE 50% WATER 50ML SYRINGE IV SCH (12:00)
[2020-08-05] MEDS ORDERED: CALCIUM GLUCONATE 1GM PREMIX 50 ML IV SCH (13:00)
[2020-08-05] MEDS ORDERED: DEXTROSE 50% WATER 50ML SYRINGE IV NR (18:00)
[2020-08-05] MEDS ORDERED: SODIUM BICARBONATE 8.4% 1 MEQ/ML 50ML SYR IV NR (18:00)
[2020-08-05] MEDS ORDERED: INSULIN REGULAR (HUMULIN R) 300UNITS/3ML VIAL IV NR (18:00)
[2020-08-05] MEDS ORDERED: CALCIUM GLUCONATE 1,000 MG in DEXT 5% WATER 90 ML IV ONE (18:00)
[2020-08-05 18:23] LABS: BG BASE EXCESS -2.8 mmol/L (-2.0-2.0); BG CARBOXYHEMOGLOBIN 0.3 % (0.5-1.5); BG DEOXYHEMOGLOBIN 1.4 % (0.0-5.0); BG FRACTION INSPIRED OXYGEN 100; BG HCO3 ACT 24.2 mmol/L (22.0-26.0); BG METHEMOGLOBIN 0.3 % (0.0-1.5); BG OXYGEN SATURATION 98.6 % (92.0-98.5); BG PCO2 51.9 mmHg (35.0-45.0); BG PH 7.286 (7.350-7.450); BG PO2 164.5 mmHg (75.0-100.0); BG SAMPLE SITE LEFT RADIAL; BG TOTAL HEMOGLOBIN 11.6 g/dL (12.0-18.0)
[2020-08-05 19:24] LABS: BG TIDAL VOLUME(mL) 500 mL; BG VENT MODE VENT - A/C
[2020-08-05] MEDS ORDERED: CALCIUM GLUCONATE 1GM PREMIX 50 ML IV NR (20:00)
[2020-08-06] VITALS (98 sets, daily range): BP systolic 89–140; BP diastolic 38–78
[2020-08-06] MEDS: PROPOFOL 10MG/ML 100ML 100 ML IV PRN ×6 (01:22→21:33)
[2020-08-06] MEDS: DILTIAZEM HCL 30MG TABLET PO SCH ×4 (02:49→21:08)
[2020-08-06] MEDS: MIDAZOLAM 100MG/100ML PMX 100 ML IV PRN ×3 (02:50→16:26)
[2020-08-06] MEDS: METHYLPREDNISOLONE SOD SUCC 40 MG/ML VIAL IV SCH ×2 (02:58→14:24)
[2020-08-06] MEDS: IPRATROPIUM/ALBUTEROL 0.5-3(2.5)MG/3ML NEB HHN SCH ×4 (03:33→22:00)
[2020-08-06 05:49] LABS: HEMATOCRIT. 27.4 % (36.0-48.0); HEMOGLOBIN. 8.9 g/dL (12.0-16.0); MEAN CORPUSCULAR HEMOGLOBIN 30.5 pg (28.0-32.0); MEAN CORPUSCULAR VOLUME 93.9 fL (81.0-99.0); MEAN PLATELET VOLUME 9.1 fl (7.4-10.4); PLATELET 303 x1000/uL (130-400); RED BLOOD CELL COUNT 2.91 mill/uL (4.2-5.4); RED CELL DISTRIBUTION WIDTH 14.3 % (11.6-14.6)
[2020-08-06] MEDS: SODIUM BICARBONATE 50 MEQ in DEXT 5%/0.45% NACL 1000ML 1,000 ML IV SCH ×2 (07:41→22:29)
[2020-08-06] MEDS: FAMOTIDINE 20MG/2ML VIAL IV SCH (08:01)
[2020-08-06] MEDS: METOPROLOL TARTRATE 50MG TABLET GT SCH ×2 (08:01→21:08)
[2020-08-06] MEDS: LACTULOSE 20G/30ML UDC NG SCH (08:01)
[2020-08-06] MEDS: ENOXAPARIN 120MG/0.8ML SYR SUBCUT SCH ×2 (08:02→21:07)
[2020-08-06 08:21] LABS: PLATELET ESTIMATE NORMAL
[2020-08-06 08:49] LABS: BG BASE EXCESS -2.9 mmol/L (-2.0-2.0); BG CARBOXYHEMOGLOBIN 0.3 % (0.5-1.5); BG HCO3 ACT 23.2 mmol/L (22.0-26.0); BG METHEMOGLOBIN 0.3 % (0.0-1.5); BG OXYHEMOGLOBIN 98.4 % (94.0-97.0); BG PCO2 45.7 mmHg (35.0-45.0); BG PH 7.323 (7.350-7.450); BG PO2 179.6 mmHg (75.0-100.0); BG SAMPLE SITE LEFT RADIAL; BG TOTAL HEMOGLOBIN 11.8 g/dL (12.0-18.0); BG VENT MODE VENT - AC
[2020-08-06] MEDS ORDERED: SODIUM POLYSTYRENE SULFONATE 15 G/60 ML BOT PO SCH (10:00)
[2020-08-06] MEDS: FENTANYL CITRATE/PF 2,500 MCG in SODIUM CHLORIDE 0.9% 200 ML IV PRN ×2 (10:12→18:06)
[2020-08-06] MEDS ORDERED: DEXTROSE 50% WATER 50ML SYRINGE IV NR ×2 (10:45→16:30)
[2020-08-06] MEDS ORDERED: INSULIN REGULAR (HUMULIN R) 300UNITS/3ML VIAL IV NR ×2 (10:45→16:30)
[2020-08-06] MEDS ORDERED: CALCIUM GLUCONATE 1,000 MG in DEXT 5% WATER 90 ML IV ONE (10:45)
[2020-08-06] MEDS ORDERED: SODIUM BICARBONATE 8.4% 1 MEQ/ML 50ML SYR IV NR ×2 (10:45→16:30)
[2020-08-06] MEDS ORDERED: CALCIUM GLUCONATE 1GM PREMIX 50 ML IV SCH (11:00)
[2020-08-06 13:23] LABS: HEMATOCRIT 34.2 % (36.0-48.0)
[2020-08-06] MEDS ORDERED: SODIUM POLYSTYRENE SULFONATE 15 G/60 ML BOT PO NR (15:30)
[2020-08-06] MEDS ORDERED: CALCIUM GLUCONATE 1GM PREMIX 50 ML IV NR (18:00)
[2020-08-06] MEDS: MIDAZOLAM HCL 100 MG in SODIUM CHLORIDE 0.9% 80 ML IV PRN (23:48)
[2020-08-07] VITALS (90 sets, daily range): BP systolic 85–145; BP diastolic 39–84
[2020-08-07] MEDS: PROPOFOL 10MG/ML 100ML 100 ML IV PRN ×7 (01:25→22:26)
[2020-08-07] MEDS: FENTANYL CITRATE/PF 2,500 MCG in SODIUM CHLORIDE 0.9% 200 ML IV PRN ×3 (02:05→18:05)
[2020-08-07] MEDS: METHYLPREDNISOLONE SOD SUCC 40 MG/ML VIAL IV SCH ×2 (02:19→15:15)
[2020-08-07] MEDS: DILTIAZEM HCL 30MG TABLET PO SCH ×4 (02:19→22:18)
[2020-08-07] MEDS: IPRATROPIUM/ALBUTEROL 0.5-3(2.5)MG/3ML NEB HHN SCH ×4 (05:10→21:13)
[2020-08-07 06:02] LABS: HEMATOCRIT. 34.1 % (36.0-48.0); HEMOGLOBIN. 10.8 g/dL (12.0-16.0); MEAN CORPUSCULAR HEMOGLOBIN 29.4 pg (28.0-32.0); MEAN CORPUSCULAR VOLUME 92.8 fL (81.0-99.0); PLATELET 396 x1000/uL (130-400); RED BLOOD CELL COUNT 3.68 mill/uL (4.2-5.4); RED CELL DISTRIBUTION WIDTH 14.4 % (11.6-14.6)
[2020-08-07] MEDS: MIDAZOLAM HCL 100 MG in SODIUM CHLORIDE 0.9% 80 ML IV PRN ×2 (06:23→14:54)
[2020-08-07] MEDS: LACTULOSE 20G/30ML UDC NG SCH (08:17)
[2020-08-07] MEDS: FAMOTIDINE 20MG/2ML VIAL IV SCH (08:24)
[2020-08-07] MEDS: ENOXAPARIN 120MG/0.8ML SYR SUBCUT SCH ×2 (08:24→22:17)
[2020-08-07] MEDS: METOPROLOL TARTRATE 50MG TABLET GT SCH ×2 (08:24→22:17)
[2020-08-07 08:46] LABS: CLARITY URINE CLOUDY (CLEAR); KETONES URINE NEGATIVE (NEGATIVE); LEUKOCYTE ESTERASE URINE 3+ (NEGATIVE); NITRITE URINE NEGATIVE (NEGATIVE); OCCULT BLOOD URINE 3+ (NEGATIVE); PH URINE 6.5 (4.5-8.0); PROTEIN URINE 2+ (NEGATIVE); SPECIFIC GRAVITY URINE 1.007 (1.005-1.030); UROBILINOGEN URINE 0.2 E.U./dL (0.2-1.0)
[2020-08-07 08:56] LABS: COLOR URINE BLOODY (YELLOW)
[2020-08-07 09:10] LABS: BG BASE EXCESS -1.3 mmol/L (-2.0-2.0); BG CARBOXYHEMOGLOBIN 0.3 % (0.5-1.5); BG DEOXYHEMOGLOBIN 1.4 % (0.0-5.0); BG FRACTION INSPIRED OXYGEN 90; BG HCO3 ACT 25.8 mmol/L (22.0-26.0); BG METHEMOGLOBIN 0.3 % (0.0-1.5); BG OXYGEN SATURATION 98.6 % (92.0-98.5); BG PCO2 54.5 mmHg (35.0-45.0); BG PH 7.293 (7.350-7.450); BG PO2 159.9 mmHg (75.0-100.0); BG SAMPLE SITE LEFT RADIAL; BG TOTAL HEMOGLOBIN 11.5 g/dL (12.0-18.0); BG VENT MODE VENT - AC
[2020-08-07] MEDS ORDERED: DEXTROSE 50% WATER 50ML SYRINGE IV NR (11:29)
[2020-08-07] MEDS ORDERED: INSULIN REGULAR (HUMULIN R) 300UNITS/3ML VIAL IV NR (11:29)
[2020-08-07] MEDS ORDERED: SODIUM BICARBONATE 8.4% 1 MEQ/ML 50ML SYR IV NR (11:30)
[2020-08-07] MEDS ORDERED: SODIUM POLYSTYRENE SULFONATE 15 G/60 ML BOT PO ONE (13:00)
[2020-08-07] MEDS ORDERED: SODIUM POLYSTYRENE SULFONATE 15 G/60 ML BOT PO NR (13:00)
[2020-08-07] MEDS ORDERED: CALCIUM GLUCONATE 1GM PREMIX 50 ML IV NR (13:00)
[2020-08-07] MEDS: SODIUM BICARBONATE 50 MEQ in DEXT 5%/0.45% NACL 1000ML 1,000 ML IV SCH (14:15)
[2020-08-07] MEDS ORDERED: FUROSEMIDE 20MG/2ML VIAL IVP NR (15:15)
[2020-08-07 17:08] LABS: BG CARBOXYHEMOGLOBIN 0.3 % (0.5-1.5); BG DEOXYHEMOGLOBIN 25.5 % (0.0-5.0); BG FRACTION INSPIRED OXYGEN 100; BG HCO3 ACT 25.9 mmol/L (22.0-26.0); BG METHEMOGLOBIN 0.2 % (0.0-1.5); BG OXYGEN SATURATION 74.4 % (92.0-98.5); BG PCO2 65.6 mmHg (35.0-45.0); BG PH 7.214 (7.350-7.450); BG PO2 47.2 mmHg (75.0-100.0); BG SAMPLE SITE LEFT RADIAL; BG TOTAL HEMOGLOBIN 12.3 g/dL (12.0-18.0); BG VENT MODE VENT - AC
[2020-08-07 17:09] LABS: PLATELET ESTIMATE NORMAL
[2020-08-07] MEDS: ALBUMIN HUMAN 12.5GM/50ML (25%) IV SCH (17:58)
[2020-08-07] MEDS: MIDAZOLAM 100MG/100ML PREMIX IV PRN (22:24)
[2020-08-08] VITALS (90 sets, daily range): BP systolic 114–149; BP diastolic 56–83
[2020-08-08] MEDS: PROPOFOL 10MG/ML 100ML 100 ML IV PRN ×4 (01:55→10:57)
[2020-08-08] MEDS: FENTANYL CITRATE/PF 2,500 MCG in SODIUM CHLORIDE 0.9% 200 ML IV PRN ×3 (01:56→18:32)
[2020-08-08] MEDS: DILTIAZEM HCL 30MG TABLET PO SCH ×4 (02:01→21:47)
[2020-08-08] MEDS: METHYLPREDNISOLONE SOD SUCC 40 MG/ML VIAL IV SCH ×2 (02:01→14:34)
[2020-08-08] MEDS: IPRATROPIUM/ALBUTEROL 0.5-3(2.5)MG/3ML NEB HHN SCH ×4 (02:44→20:31)
[2020-08-08] MEDS: MIDAZOLAM 100MG/100ML PREMIX IV PRN ×3 (04:43→20:16)
[2020-08-08] MEDS: ALBUMIN HUMAN 12.5GM/50ML (25%) IV SCH (04:44)
[2020-08-08 05:43] LABS: HEMATOCRIT. 32.7 % (36.0-48.0); HEMOGLOBIN. 10.4 g/dL (12.0-16.0); MEAN CORPUSCULAR HEMOGLOBIN 29.7 pg (28.0-32.0); MEAN CORPUSCULAR VOLUME 93.6 fL (81.0-99.0); MEAN PLATELET VOLUME 9.1 fl (7.4-10.4); PLATELET 387 x1000/uL (130-400); RED CELL DISTRIBUTION WIDTH 14.8 % (11.6-14.6)
[2020-08-08] MEDS: SODIUM BICARBONATE 50 MEQ in DEXT 5%/0.45% NACL 1000ML 1,000 ML IV SCH (07:50)
[2020-08-08] MEDS ORDERED: FUROSEMIDE 100MG/10ML VIAL IVP SCH (08:00)
[2020-08-08] MEDS: LACTULOSE 20G/30ML UDC NG SCH (09:00)
[2020-08-08] MEDS: FAMOTIDINE 20MG/2ML VIAL IV SCH (09:12)
[2020-08-08] MEDS: ENOXAPARIN 120MG/0.8ML SYR SUBCUT SCH ×2 (09:12→21:46)
[2020-08-08] MEDS: METOPROLOL TARTRATE 50MG TABLET GT SCH ×2 (09:12→21:00)
[2020-08-08 10:22] LABS: BG BASE EXCESS -3.4 mmol/L (-2.0-2.0); BG CARBOXYHEMOGLOBIN 0.3 % (0.5-1.5); BG DEOXYHEMOGLOBIN 0.5 % (0.0-5.0); BG HCO3 ACT 22.5 mmol/L (22.0-26.0); BG METHEMOGLOBIN 0.5 % (0.0-1.5); BG OXYGEN SATURATION 99.5 % (92.0-98.5); BG OXYHEMOGLOBIN 98.7 % (94.0-97.0); BG PCO2 43.7 mmHg (35.0-45.0); BG PH 7.329 (7.350-7.450); BG PO2 326.9 mmHg (75.0-100.0); BG SAMPLE SITE LEFT RADIAL; BG TOTAL HEMOGLOBIN 11.4 g/dL (12.0-18.0); BG VENT MODE VENT - AC
[2020-08-08] MEDS ORDERED: SODIUM BICARBONATE 8.4% 1 MEQ/ML 50ML SYR IV SCH (11:45)
[2020-08-08] MEDS ORDERED: INSULIN REGULAR (HUMULIN R) 300UNITS/3ML VIAL IV SCH (12:00)
[2020-08-08] MEDS ORDERED: DEXTROSE 50% WATER 50ML SYRINGE IV SCH (12:00)
[2020-08-08] MEDS ORDERED: SODIUM POLYSTYRENE SULFONATE 15 G/60 ML BOT PO SCH (13:00)
[2020-08-08] MEDS ORDERED: CALCIUM CHLORIDE 1,000 MG in DEXT 5% WATER 90 ML IV SCH (14:00)
[2020-08-08] MEDS ORDERED: LIDOCAINE HCL 1% 20ML VIAL (Pyxis) INJ ONE (14:13)
[2020-08-08] MEDS: PROPOFOL 10MG/ML 100ML 100 ML IV SCH ×2 (15:03→20:11)
[2020-08-08 17:07] LABS: PLATELET ESTIMATE NORMAL
[2020-08-09] VITALS (95 sets, daily range): BP systolic 110–164; BP diastolic 52–90
[2020-08-09] MEDS: PROPOFOL 10MG/ML 100ML 100 ML IV SCH ×6 (01:04→21:14)
[2020-08-09] MEDS: DILTIAZEM HCL 30MG TABLET PO SCH ×4 (01:49→22:08)
[2020-08-09] MEDS: METHYLPREDNISOLONE SOD SUCC 40 MG/ML VIAL IV SCH ×2 (02:03→15:35)
[2020-08-09] MEDS: FENTANYL CITRATE/PF 2,500 MCG in SODIUM CHLORIDE 0.9% 200 ML IV PRN ×3 (02:39→19:49)
[2020-08-09] MEDS: IPRATROPIUM/ALBUTEROL 0.5-3(2.5)MG/3ML NEB HHN SCH ×4 (04:11→22:00)
[2020-08-09] MEDS: MIDAZOLAM 100MG/100ML PREMIX IV PRN ×3 (04:27→23:53)
[2020-08-09 05:09] LABS: HEMATOCRIT. 29.3 % (36.0-48.0); HEMOGLOBIN. 9.6 g/dL (12.0-16.0); MEAN CORPUSCULAR VOLUME 91.6 fL (81.0-99.0); MEAN PLATELET VOLUME 9.2 fl (7.4-10.4); PLATELET 325 x1000/uL (130-400); RED CELL DISTRIBUTION WIDTH 14.1 % (11.6-14.6)
[2020-08-09] MEDS: LACTULOSE 20G/30ML UDC NG SCH (09:00)
[2020-08-09] MEDS: ENOXAPARIN 120MG/0.8ML SYR SUBCUT SCH (09:22)
[2020-08-09] MEDS: FAMOTIDINE 20MG/2ML VIAL IV SCH (09:23)
[2020-08-09] MEDS: METOPROLOL TARTRATE 50MG TABLET GT SCH ×2 (09:23→22:08)
[2020-08-09] MEDS ORDERED: DEXTROSE 50% WATER 50ML SYRINGE IV NR (10:15)
[2020-08-09] MEDS ORDERED: INSULIN REGULAR (HUMULIN R) 300UNITS/3ML VIAL IV NR (10:15)
[2020-08-09] MEDS ORDERED: SODIUM BICARBONATE 8.4% 1 MEQ/ML 50ML SYR IV NR (10:15)
[2020-08-09] MEDS: SODIUM BICARBONATE 50 MEQ in DEXT 5%/0.45% NACL 1000ML 1,000 ML IV SCH (10:30)
[2020-08-09 10:57] LABS: BG BASE EXCESS -2.6 mmol/L (-2.0-2.0); BG CARBOXYHEMOGLOBIN 0.3 % (0.5-1.5); BG DEOXYHEMOGLOBIN 5.3 % (0.0-5.0); BG FRACTION INSPIRED OXYGEN 60; BG HCO3 ACT 24.1 mmol/L (22.0-26.0); BG METHEMOGLOBIN 0.5 % (0.0-1.5); BG OXYGEN SATURATION 94.7 % (92.0-98.5); BG OXYHEMOGLOBIN 93.9 % (94.0-97.0); BG PCO2 50.4 mmHg (35.0-45.0); BG PH 7.297 (7.350-7.450); BG PO2 85.1 mmHg (75.0-100.0); BG SAMPLE SITE LEFT RADIAL; BG TOTAL HEMOGLOBIN 10.9 g/dL (12.0-18.0); BG TOTAL RESPIRATORY RATE 26 b/min; BG VENT MODE VENT - AC
[2020-08-09] MEDS ORDERED: SODIUM POLYSTYRENE SULFONATE 15 G/60 ML BOT PO NR (12:00)
[2020-08-09] MEDS ORDERED: CALCIUM GLUCONATE 1GM PREMIX 50 ML IV NR (12:00)
[2020-08-09] MEDS: PIPERACILLIN/TAZOBACTAM 2.25 G in DEXTROSE 5% WATER 50 ML IV SCH ×3 (12:16→23:46)
[2020-08-09] MEDS ORDERED: VANCOMYCIN 2,000 MG in DEXT 5% WATER 500 ML IV NR (13:00)
[2020-08-09] MEDS: FLUCONAZOLE 100MG TABLET PO SCH (13:24)
[2020-08-09 13:37] LABS: PROTHROMBIN TIME 10.6 sec (9.6-11.0)
[2020-08-09 15:58] LABS: PLATELET ESTIMATE NORMAL
[2020-08-09 19:27] LABS: HEMOGLOBIN 9.9 g/dL (12.0-16.0)
[2020-08-10] VITALS (96 sets, daily range): BP systolic 87–127; BP diastolic 43–69
[2020-08-10] MEDS: PROPOFOL 10MG/ML 100ML 100 ML IV SCH ×3 (00:32→06:44)
[2020-08-10] MEDS: DILTIAZEM HCL 30MG TABLET PO SCH ×4 (02:15→20:33)
[2020-08-10] MEDS: METHYLPREDNISOLONE SOD SUCC 40 MG/ML VIAL IV SCH ×2 (02:17→15:44)
[2020-08-10] MEDS: IPRATROPIUM/ALBUTEROL 0.5-3(2.5)MG/3ML NEB HHN SCH ×4 (03:35→20:57)
[2020-08-10] MEDS: PIPERACILLIN/TAZOBACTAM 2.25 G in DEXTROSE 5% WATER 50 ML IV SCH ×4 (05:29→23:22)
[2020-08-10 05:43] LABS: HEMATOCRIT. 29.9 % (36.0-48.0); HEMOGLOBIN. 9.8 g/dL (12.0-16.0); MEAN CORPUSCULAR HEMOGLOBIN 30.2 pg (28.0-32.0); MEAN PLATELET VOLUME 9.1 fl (7.4-10.4); PLATELET 268 x1000/uL (130-400); RED BLOOD CELL COUNT 3.25 mill/uL (4.2-5.4); RED CELL DISTRIBUTION WIDTH 14.6 % (11.6-14.6)
[2020-08-10] MEDS: MIDAZOLAM 100MG/100ML PREMIX IV PRN ×3 (06:10→22:57)
[2020-08-10] MEDS: FENTANYL CITRATE/PF 2,500 MCG in SODIUM CHLORIDE 0.9% 200 ML IV PRN ×3 (06:11→23:01)
[2020-08-10] MEDS: LACTULOSE 20G/30ML UDC NG SCH (08:49)
[2020-08-10] MEDS: FAMOTIDINE 20MG/2ML VIAL IV SCH (08:49)
[2020-08-10] MEDS: METOPROLOL TARTRATE 50MG TABLET GT SCH ×2 (08:49→20:34)
[2020-08-10] MEDS: FLUCONAZOLE 100MG TABLET PO SCH (08:52)
[2020-08-10] MEDS: PROPOFOL 10MG/ML 100ML 100 ML IV PRN ×4 (10:03→20:41)
[2020-08-10 10:08] LABS: BG BASE EXCESS -0.6 mmol/L (-2.0-2.0); BG CARBOXYHEMOGLOBIN 0.5 % (0.5-1.5); BG DEOXYHEMOGLOBIN 14.8 % (0.0-5.0); BG FRACTION INSPIRED OXYGEN 100; BG HCO3 ACT 25.9 mmol/L (22.0-26.0); BG METHEMOGLOBIN 0.2 % (0.0-1.5); BG OXYGEN SATURATION 85.1 % (92.0-98.5); BG OXYHEMOGLOBIN 84.5 % (94.0-97.0); BG PCO2 51.5 mmHg (35.0-45.0); BG PH 7.319 (7.350-7.450); BG PO2 56.9 mmHg (75.0-100.0); BG SAMPLE SITE LEFT RADIAL; BG TOTAL HEMOGLOBIN 10.5 g/dL (12.0-18.0); BG TOTAL RESPIRATORY RATE 38 b/min; BG VENT MODE VENT - AC
[2020-08-10 11:11] LABS: PLATELET ESTIMATE NORMAL
[2020-08-10] MEDS ORDERED: CALCIUM GLUCONATE 1GM PREMIX 50 ML IV NR (17:00)
[2020-08-10] MEDS: LINEZOLID 600MG TABLET PO SCH (20:34)
[2020-08-11] VITALS (100 sets, daily range): BP systolic 83–171; BP diastolic 36–101
[2020-08-11] MEDS: IPRATROPIUM/ALBUTEROL 0.5-3(2.5)MG/3ML NEB HHN SCH ×4 (01:01→21:50)
[2020-08-11] MEDS: PROPOFOL 10MG/ML 100ML 100 ML IV PRN ×6 (01:27→23:13)
[2020-08-11] MEDS: DILTIAZEM HCL 30MG TABLET PO SCH ×4 (02:00→20:03)
[2020-08-11] MEDS: METHYLPREDNISOLONE SOD SUCC 40 MG/ML VIAL IV SCH ×2 (03:02→15:48)
[2020-08-11] MEDS: PIPERACILLIN/TAZOBACTAM 2.25 G in DEXTROSE 5% WATER 50 ML IV SCH ×4 (05:32→23:31)
[2020-08-11 05:57] LABS: HEMATOCRIT. 27.2 % (36.0-48.0); MEAN CORPUSCULAR HEMOGLOBIN 30.6 pg (28.0-32.0); MEAN CORPUSCULAR VOLUME 92.4 fL (81.0-99.0); MEAN PLATELET VOLUME 10.1 fl (7.4-10.4); PLATELET 185 x1000/uL (130-400); RED BLOOD CELL COUNT 2.95 mill/uL (4.2-5.4); RED CELL DISTRIBUTION WIDTH 14.9 % (11.6-14.6)
[2020-08-11] MEDS: MIDAZOLAM 100MG/100ML PREMIX IV PRN ×2 (07:44→15:52)
[2020-08-11] MEDS: FENTANYL CITRATE/PF 2,500 MCG in SODIUM CHLORIDE 0.9% 200 ML IV PRN ×2 (07:50→15:53)
[2020-08-11] MEDS: FLUCONAZOLE 100MG TABLET PO SCH (08:26)
[2020-08-11] MEDS: LACTULOSE 20G/30ML UDC NG SCH (08:26)
[2020-08-11] MEDS: FAMOTIDINE 20MG/2ML VIAL IV SCH (08:26)
[2020-08-11] MEDS: LINEZOLID 600MG TABLET PO SCH ×2 (08:26→20:34)
[2020-08-11 08:54] LABS: BG CARBOXYHEMOGLOBIN 0.3 % (0.5-1.5); BG HCO3 ACT 23.9 mmol/L (22.0-26.0); BG METHEMOGLOBIN 0.3 % (0.0-1.5); BG OXYGEN SATURATION 72.8 % (92.0-98.5); BG OXYHEMOGLOBIN 72.4 % (94.0-97.0); BG PCO2 58.1 mmHg (35.0-45.0); BG PH 7.232 (7.350-7.450); BG PO2 46.6 mmHg (75.0-100.0); BG SAMPLE SITE LEFT RADIAL; BG TOTAL HEMOGLOBIN 10.4 g/dL (12.0-18.0); BG VENT MODE VENT - AC
[2020-08-11] MEDS: METOPROLOL TARTRATE 50MG TABLET GT SCH ×2 (09:00→20:04)
[2020-08-11 09:46] LABS: NUCLEATED RED BLOOD CELLS 1 /100 WBC; PLATELET ESTIMATE NORMAL
[2020-08-11] MEDS ORDERED: SODIUM BICARBONATE 8.4% 1 MEQ/ML 50ML SYR IV SCH (10:00)
[2020-08-11] MEDS ORDERED: CALCIUM GLUCONATE 1GM PREMIX 50 ML IV NR (12:00)
[2020-08-11] MEDS: NOREPINEPHRINE 8 MG in DEXTROSE 5% WATER 250 ML IV PRN (15:55)
[2020-08-11 16:34] LABS: BG BASE EXCESS -5.6 mmol/L (-2.0-2.0); BG CARBOXYHEMOGLOBIN 0.3 % (0.5-1.5); BG DEOXYHEMOGLOBIN 5.5 % (0.0-5.0); BG HCO3 ACT 22.5 mmol/L (22.0-26.0); BG METHEMOGLOBIN 0.3 % (0.0-1.5); BG OXYGEN SATURATION 94.5 % (92.0-98.5); BG OXYHEMOGLOBIN 93.9 % (94.0-97.0); BG PCO2 56.6 mmHg (35.0-45.0); BG PH 7.218 (7.350-7.450); BG PO2 90.8 mmHg (75.0-100.0); BG SAMPLE SITE LEFT RADIAL; BG TOTAL HEMOGLOBIN 11.4 g/dL (12.0-18.0); BG VENT MODE VENT - AC
[2020-08-12] VITALS (74 sets, daily range): BP systolic 81–223; BP diastolic 37–124
[2020-08-12] MEDS: MIDAZOLAM 100MG/100ML PREMIX IV PRN ×3 (00:05→13:47)
[2020-08-12] MEDS: FENTANYL CITRATE/PF 2,500 MCG in SODIUM CHLORIDE 0.9% 200 ML IV PRN ×3 (00:06→15:37)
[2020-08-12] MEDS: PROPOFOL 10MG/ML 100ML 100 ML IV PRN ×7 (02:16→22:55)
[2020-08-12] MEDS: DILTIAZEM HCL 30MG TABLET PO SCH ×4 (02:18→20:33)
[2020-08-12] MEDS: METHYLPREDNISOLONE SOD SUCC 40 MG/ML VIAL IV SCH ×2 (02:19→15:09)
[2020-08-12] MEDS: IPRATROPIUM/ALBUTEROL 0.5-3(2.5)MG/3ML NEB HHN SCH ×4 (03:23→22:57)
[2020-08-12] MEDS: PIPERACILLIN/TAZOBACTAM 2.25 G in DEXTROSE 5% WATER 50 ML IV SCH ×3 (05:04→17:40)
[2020-08-12 06:02] LABS: HEMATOCRIT. 29.5 % (36.0-48.0); HEMOGLOBIN. 9.5 g/dL (12.0-16.0); MEAN CORPUSCULAR HEMOGLOBIN 29.8 pg (28.0-32.0); MEAN CORPUSCULAR VOLUME 92.8 fL (81.0-99.0); MEAN PLATELET VOLUME 9.7 fl (7.4-10.4); PLATELET 243 x1000/uL (130-400); RED BLOOD CELL COUNT 3.18 mill/uL (4.2-5.4); RED CELL DISTRIBUTION WIDTH 14.8 % (11.6-14.6)
[2020-08-12] MEDS: METOPROLOL TARTRATE 50MG TABLET GT SCH ×2 (09:00→20:33)
[2020-08-12] MEDS: FLUCONAZOLE 100MG TABLET PO SCH (09:24)
[2020-08-12] MEDS: FAMOTIDINE 20MG/2ML VIAL IV SCH (09:24)
[2020-08-12] MEDS: LACTULOSE 20G/30ML UDC NG SCH (09:24)
[2020-08-12] MEDS: LINEZOLID 600MG TABLET PO SCH ×2 (09:28→20:34)
[2020-08-12 09:31] LABS: BG BASE EXCESS -2.5 mmol/L (-2.0-2.0); BG CARBOXYHEMOGLOBIN 0.3 % (0.5-1.5); BG DEOXYHEMOGLOBIN 1.6 % (0.0-5.0); BG FRACTION INSPIRED OXYGEN 100; BG METHEMOGLOBIN 0.3 % (0.0-1.5); BG OXYGEN SATURATION 98.4 % (92.0-98.5); BG OXYHEMOGLOBIN 97.8 % (94.0-97.0); BG PCO2 49.8 mmHg (35.0-45.0); BG PO2 132.8 mmHg (75.0-100.0); BG SAMPLE SITE LEFT RADIAL; BG TOTAL HEMOGLOBIN 8.1 g/dL (12.0-18.0); BG VENT MODE VENT - AC
[2020-08-12 09:39] LABS: PLATELET ESTIMATE NORMAL
[2020-08-12] MEDS: NOREPINEPHRINE 8 MG in DEXTROSE 5% WATER 250 ML IV PRN ×2 (11:31→14:35)
[2020-08-12] MEDS: MIDAZOLAM 100MG/100ML PMX 100 ML IV PRN (21:29)
[2020-08-13] VITALS (99 sets, daily range): BP systolic 72–167; BP diastolic 32–88
[2020-08-13] MEDS: PIPERACILLIN/TAZOBACTAM 2.25 G in DEXTROSE 5% WATER 50 ML IV SCH ×3 (00:36→12:10)
[2020-08-13] MEDS: FENTANYL CITRATE/PF 2,500 MCG in SODIUM CHLORIDE 0.9% 200 ML IV PRN ×3 (00:38→16:15)
[2020-08-13] MEDS: DILTIAZEM HCL 30MG TABLET PO SCH ×5 (02:00→21:57)
[2020-08-13] MEDS: PROPOFOL 10MG/ML 100ML 100 ML IV PRN ×6 (02:23→22:06)
[2020-08-13] MEDS: METHYLPREDNISOLONE SOD SUCC 40 MG/ML VIAL IV SCH ×2 (03:53→14:57)
[2020-08-13] MEDS: MIDAZOLAM 100MG/100ML PMX 100 ML IV PRN ×3 (04:28→18:30)
[2020-08-13] MEDS: IPRATROPIUM/ALBUTEROL 0.5-3(2.5)MG/3ML NEB HHN SCH ×4 (04:58→20:00)
[2020-08-13 05:43] LABS: HEMATOCRIT. 26.9 % (36.0-48.0); HEMOGLOBIN. 8.9 g/dL (12.0-16.0); MEAN CORPUSCULAR HEMOGLOBIN 30.4 pg (28.0-32.0); MEAN CORPUSCULAR VOLUME 92.1 fL (81.0-99.0); MEAN PLATELET VOLUME 9.7 fl (7.4-10.4); PLATELET 244 x1000/uL (130-400); RED BLOOD CELL COUNT 2.92 mill/uL (4.2-5.4); RED CELL DISTRIBUTION WIDTH 14.9 % (11.6-14.6)
[2020-08-13 08:11] LABS: NUCLEATED RED BLOOD CELLS 2 /100 WBC; PLATELET ESTIMATE NORMAL
[2020-08-13] MEDS: FLUCONAZOLE 100MG TABLET PO SCH (08:48)
[2020-08-13] MEDS: LACTULOSE 20G/30ML UDC NG SCH (08:48)
[2020-08-13] MEDS: LINEZOLID 600MG TABLET PO SCH ×2 (08:48→21:58)
[2020-08-13] MEDS: METOPROLOL TARTRATE 50MG TABLET GT SCH ×2 (08:48→21:57)
[2020-08-13] MEDS: FAMOTIDINE 20MG/2ML VIAL IV SCH (08:48)
[2020-08-13] MEDS ORDERED: CALCIUM GLUCONATE 1GM PREMIX 50 ML IV SCH (12:00)
[2020-08-13 12:59] LABS: BG BASE EXCESS -5.6 mmol/L (-2.0-2.0); BG CARBOXYHEMOGLOBIN 0.3 % (0.5-1.5); BG DEOXYHEMOGLOBIN 1.1 % (0.0-5.0); BG FRACTION INSPIRED OXYGEN 100; BG HCO3 ACT 22.9 mmol/L (22.0-26.0); BG METHEMOGLOBIN 0.6 % (0.0-1.5); BG OXYGEN SATURATION 98.9 % (92.0-98.5); BG PH 7.199 (7.350-7.450); BG PO2 206.4 mmHg (75.0-100.0); BG SAMPLE SITE LEFT BRACHIAL; BG TOTAL HEMOGLOBIN 10.8 g/dL (12.0-18.0); BG VENT MODE VENT - AC
[2020-08-13] MEDS: NOREPINEPHRINE 8 MG in DEXTROSE 5% WATER 250 ML IV PRN (13:37)
[2020-08-13] MEDS ORDERED: SODIUM BICARBONATE 8.4% 1 MEQ/ML 50ML SYR IV NR ×2 (14:00→17:15)
[2020-08-13] MEDS ORDERED: LEVOFLOXACIN 500MG PREMIX 100 ML IV SCH (15:00)
[2020-08-13 16:47] LABS: BG BASE EXCESS -10.2 mmol/L (-2.0-2.0); BG CARBOXYHEMOGLOBIN 0.3 % (0.5-1.5); BG DEOXYHEMOGLOBIN 9.8 % (0.0-5.0); BG FRACTION INSPIRED OXYGEN 100; BG HCO3 ACT 18.7 mmol/L (22.0-26.0); BG METHEMOGLOBIN 0.1 % (0.0-1.5); BG OXYGEN SATURATION 90.2 % (92.0-98.5); BG OXYHEMOGLOBIN 89.8 % (94.0-97.0); BG PCO2 55.8 mmHg (35.0-45.0); BG PH 7.142 (7.350-7.450); BG PO2 73.2 mmHg (75.0-100.0); BG SAMPLE SITE LEFT BRACHIAL; BG TOTAL HEMOGLOBIN 10.4 g/dL (12.0-18.0); BG VENT MODE VENT - AC
[2020-08-13] MEDS: ALBUMIN HUMAN 25GM/100ML (25%) IV NR ×2 (17:11→18:00)
[2020-08-13] MEDS: SODIUM BICARBONATE 100 MEQ in DEXT 5%/0.45% NACL 1000ML 1,000 ML IV SCH (18:00)
[2020-08-14] VITALS (91 sets, daily range): BP systolic 81–147; BP diastolic 36–95
[2020-08-14] MEDS: FENTANYL CITRATE/PF 2,500 MCG in SODIUM CHLORIDE 0.9% 200 ML IV PRN ×3 (01:36→18:07)
[2020-08-14] MEDS: DILTIAZEM HCL 30MG TABLET PO SCH ×4 (02:00→20:27)
[2020-08-14] MEDS: METHYLPREDNISOLONE SOD SUCC 40 MG/ML VIAL IV SCH ×2 (02:25→14:12)
[2020-08-14] MEDS: PROPOFOL 10MG/ML 100ML 100 ML IV PRN ×5 (02:25→22:20)
[2020-08-14] MEDS: MIDAZOLAM 100MG/100ML PMX 100 ML IV PRN ×3 (03:03→20:27)
[2020-08-14 05:53] LABS: HEMATOCRIT. 26.8 % (36.0-48.0); HEMOGLOBIN. 8.8 g/dL (12.0-16.0); MEAN CORPUSCULAR HEMOGLOBIN 30.2 pg (28.0-32.0); MEAN CORPUSCULAR VOLUME 92.3 fL (81.0-99.0); MEAN PLATELET VOLUME 9.1 fl (7.4-10.4); PLATELET 228 x1000/uL (130-400); RED CELL DISTRIBUTION WIDTH 14.8 % (11.6-14.6)
[2020-08-14 07:47] LABS: NUCLEATED RED BLOOD CELLS 3 /100 WBC; PLATELET ESTIMATE NORMAL
[2020-08-14] MEDS: SODIUM BICARBONATE 100 MEQ in DEXT 5%/0.45% NACL 1000ML 1,000 ML IV SCH (08:40)
[2020-08-14] MEDS: FAMOTIDINE 20MG/2ML VIAL IV SCH (08:56)
[2020-08-14] MEDS: LACTULOSE 20G/30ML UDC NG SCH (08:57)
[2020-08-14] MEDS: METOPROLOL TARTRATE 50MG TABLET GT SCH ×2 (08:57→20:28)
[2020-08-14] MEDS: LINEZOLID 600MG TABLET PO SCH ×2 (08:57→20:27)
[2020-08-14] MEDS: FLUCONAZOLE 100MG TABLET PO SCH (08:57)
[2020-08-14] MEDS: IPRATROPIUM/ALBUTEROL 0.5-3(2.5)MG/3ML NEB HHN SCH ×4 (09:37→21:12)
[2020-08-14 09:40] LABS: BG BASE EXCESS -3.8 mmol/L (-2.0-2.0); BG CARBOXYHEMOGLOBIN 0.3 % (0.5-1.5); BG DEOXYHEMOGLOBIN 2.2 % (0.0-5.0); BG FRACTION INSPIRED OXYGEN 100; BG HCO3 ACT 21.6 mmol/L (22.0-26.0); BG METHEMOGLOBIN 0.3 % (0.0-1.5); BG OXYGEN SATURATION 97.8 % (92.0-98.5); BG OXYHEMOGLOBIN 97.2 % (94.0-97.0); BG PCO2 40.7 mmHg (35.0-45.0); BG PH 7.343 (7.350-7.450); BG PO2 133.4 mmHg (75.0-100.0); BG SAMPLE SITE LEFT RADIAL; BG TOTAL HEMOGLOBIN 8.7 g/dL (12.0-18.0); BG VENT MODE VENT - AC
[2020-08-14] MEDS ORDERED: CALCIUM GLUCONATE 1GM PREMIX 50 ML IV NR ×2 (11:00→12:00)
[2020-08-14 14:21] LABS: PHOSPHORUS > 9.0 mg/dL (2.5-4.9)
[2020-08-14] MEDS: LEVOFLOXACIN 250MG PREMIX 50 ML IV SCH (16:01)
[2020-08-14] MEDS: NOREPINEPHRINE 8 MG in DEXTROSE 5% WATER 250 ML IV PRN (20:31)
[2020-08-15] VITALS (90 sets, daily range): BP systolic 82–159; BP diastolic 37–80
[2020-08-15] MEDS: DILTIAZEM HCL 30MG TABLET PO SCH ×4 (01:19→20:41)
[2020-08-15] MEDS: FENTANYL CITRATE/PF 2,500 MCG in SODIUM CHLORIDE 0.9% 200 ML IV PRN ×3 (01:35→18:54)
[2020-08-15] MEDS: IPRATROPIUM/ALBUTEROL 0.5-3(2.5)MG/3ML NEB HHN SCH ×4 (03:16→20:52)
[2020-08-15] MEDS: MIDAZOLAM 100MG/100ML PMX 100 ML IV PRN ×4 (04:45→22:44)
[2020-08-15] MEDS: PROPOFOL 10MG/ML 100ML 100 ML IV PRN ×5 (05:04→17:24)
[2020-08-15 05:21] LABS: HEMATOCRIT. 31.7 % (36.0-48.0); HEMOGLOBIN. 10.4 g/dL (12.0-16.0); MEAN CORPUSCULAR HEMOGLOBIN 30.2 pg (28.0-32.0); MEAN CORPUSCULAR VOLUME 92.5 fL (81.0-99.0); MEAN PLATELET VOLUME 9.3 fl (7.4-10.4); PLATELET 272 x1000/uL (130-400); RED BLOOD CELL COUNT 3.43 mill/uL (4.2-5.4); RED CELL DISTRIBUTION WIDTH 15.3 % (11.6-14.6)
[2020-08-15 05:43] LABS: PHOSPHORUS 8.2 mg/dL (2.5-4.9)
[2020-08-15] MEDS: METOPROLOL TARTRATE 50MG TABLET GT SCH ×2 (09:00→20:42)
[2020-08-15] MEDS: LINEZOLID 600MG TABLET PO SCH (09:16)
[2020-08-15] MEDS: LACTULOSE 20G/30ML UDC NG SCH (09:16)
[2020-08-15] MEDS: FAMOTIDINE 20MG/2ML VIAL IV SCH (09:17)
[2020-08-15 11:21] LABS: PLATELET ESTIMATE NORMAL
[2020-08-15] MEDS: CALCIUM ACETATE 667MG CAPSULE PO SCH ×2 (11:33→17:26)
[2020-08-15 11:53] LABS: BG BASE EXCESS -5.8 mmol/L (-2.0-2.0); BG CARBOXYHEMOGLOBIN 0.1 % (0.5-1.5); BG FRACTION INSPIRED OXYGEN 100; BG HCO3 ACT 21.8 mmol/L (22.0-26.0); BG METHEMOGLOBIN 0.3 % (0.0-1.5); BG OXYGEN SATURATION 84.9 % (92.0-98.5); BG OXYHEMOGLOBIN 84.6 % (94.0-97.0); BG PCO2 52.8 mmHg (35.0-45.0); BG PH 7.234 (7.350-7.450); BG PO2 61.1 mmHg (75.0-100.0); BG SAMPLE SITE LEFT RADIAL; BG TOTAL HEMOGLOBIN 11.1 g/dL (12.0-18.0); BG VENT MODE VENT - AC
[2020-08-15] MEDS ORDERED: SODIUM BICARBONATE 8.4% 1 MEQ/ML 50ML SYR IV SCH (13:00)
[2020-08-15] MEDS: METHYLPREDNISOLONE SOD SUCC 40 MG/ML VIAL IV SCH (16:09)
[2020-08-15] MEDS: LEVOFLOXACIN 250MG PREMIX 50 ML IV SCH (16:10)
[2020-08-15] MEDS: NOREPINEPHRINE 8 MG in DEXTROSE 5% WATER 250 ML IV PRN (21:39)
[2020-08-16] VITALS (96 sets, daily range): BP systolic 117–175; BP diastolic 51–101
[2020-08-16] MEDS: PROPOFOL 10MG/ML 100ML 100 ML IV PRN ×5 (00:22→20:10)
[2020-08-16] MEDS: IPRATROPIUM/ALBUTEROL 0.5-3(2.5)MG/3ML NEB HHN SCH ×4 (00:42→20:43)
[2020-08-16] MEDS: DILTIAZEM HCL 30MG TABLET PO SCH ×4 (02:15→21:25)
[2020-08-16] MEDS: METHYLPREDNISOLONE SOD SUCC 40 MG/ML VIAL IV SCH ×2 (02:52→15:56)
[2020-08-16] MEDS: FENTANYL CITRATE/PF 2,500 MCG in SODIUM CHLORIDE 0.9% 200 ML IV PRN ×3 (03:08→18:45)
[2020-08-16 05:33] LABS: HEMATOCRIT. 29.5 % (36.0-48.0); HEMOGLOBIN. 9.9 g/dL (12.0-16.0); MEAN CORPUSCULAR HEMOGLOBIN 30.8 pg (28.0-32.0); MEAN CORPUSCULAR VOLUME 92.2 fL (81.0-99.0); MEAN PLATELET VOLUME 8.8 fl (7.4-10.4); PLATELET 247 x1000/uL (130-400); RED CELL DISTRIBUTION WIDTH 15.4 % (11.6-14.6)
[2020-08-16] MEDS: CALCIUM ACETATE 667MG CAPSULE PO SCH ×3 (05:55→16:00)
[2020-08-16] MEDS: MIDAZOLAM 100MG/100ML PMX 100 ML IV PRN ×3 (05:58→18:43)
[2020-08-16 07:28] LABS: NUCLEATED RED BLOOD CELLS 1 /100 WBC; PLATELET ESTIMATE NORMAL
[2020-08-16] MEDS: METOPROLOL TARTRATE 50MG TABLET GT SCH ×2 (08:36→21:25)
[2020-08-16] MEDS: FAMOTIDINE 20MG/2ML VIAL IV SCH (08:37)
[2020-08-16] MEDS: LACTULOSE 20G/30ML UDC NG SCH (08:37)
[2020-08-16 09:20] LABS: BG BASE EXCESS -2.7 mmol/L (-2.0-2.0); BG CARBOXYHEMOGLOBIN 0.3 % (0.5-1.5); BG DEOXYHEMOGLOBIN 5.1 % (0.0-5.0); BG FRACTION INSPIRED OXYGEN 100; BG HCO3 ACT 23.9 mmol/L (22.0-26.0); BG METHEMOGLOBIN 0.3 % (0.0-1.5); BG OXYGEN SATURATION 94.9 % (92.0-98.5); BG OXYHEMOGLOBIN 94.3 % (94.0-97.0); BG PCO2 49.6 mmHg (35.0-45.0); BG PO2 89.6 mmHg (75.0-100.0); BG SAMPLE SITE LEFT BRACHIAL; BG TOTAL HEMOGLOBIN 9.4 g/dL (12.0-18.0); BG TOTAL RESPIRATORY RATE 30 b/min; BG VENT MODE VENT - AC
[2020-08-16] MEDS ORDERED: SODIUM BICARBONATE 8.4% 1 MEQ/ML 50ML SYR IV NR (12:00)
[2020-08-16] MEDS: LEVOFLOXACIN 250MG PREMIX 50 ML IV SCH (18:34)
[2020-08-17] VITALS (96 sets, daily range): BP systolic 119–177; BP diastolic 52–84
[2020-08-17] MEDS: PROPOFOL 10MG/ML 100ML 100 ML IV PRN ×7 (00:14→20:19)
[2020-08-17] MEDS: IPRATROPIUM/ALBUTEROL 0.5-3(2.5)MG/3ML NEB HHN SCH ×4 (01:20→20:35)
[2020-08-17] MEDS: METHYLPREDNISOLONE SOD SUCC 40 MG/ML VIAL IV SCH ×2 (03:15→17:11)
[2020-08-17] MEDS: DILTIAZEM HCL 30MG TABLET PO SCH ×4 (03:15→20:29)
[2020-08-17] MEDS: MIDAZOLAM 100MG/100ML PMX 100 ML IV PRN ×4 (03:34→23:58)
[2020-08-17] MEDS: CALCIUM ACETATE 667MG CAPSULE PO SCH ×3 (05:53→17:08)
[2020-08-17] MEDS: FENTANYL CITRATE/PF 2,500 MCG in SODIUM CHLORIDE 0.9% 200 ML IV PRN ×5 (05:54→19:51)
[2020-08-17 05:56] LABS: HEMATOCRIT. 26.7 % (36.0-48.0); MEAN CORPUSCULAR HEMOGLOBIN 30.7 pg (28.0-32.0); MEAN CORPUSCULAR VOLUME 91.4 fL (81.0-99.0); MEAN PLATELET VOLUME 8.6 fl (7.4-10.4); PLATELET 170 x1000/uL (130-400); RED BLOOD CELL COUNT 2.92 mill/uL (4.2-5.4); RED CELL DISTRIBUTION WIDTH 15.1 % (11.6-14.6)
[2020-08-17] MEDS: LACTULOSE 20G/30ML UDC NG SCH (09:33)
[2020-08-17] MEDS: FAMOTIDINE 20MG/2ML VIAL IV SCH (09:33)
[2020-08-17] MEDS: METOPROLOL TARTRATE 50MG TABLET GT SCH ×2 (09:34→20:30)
[2020-08-17] MEDS: HYDRALAZINE 20MG/ML VIAL IV PRN (10:40)
[2020-08-17 10:56] LABS: BG BASE EXCESS -1.9 mmol/L (-2.0-2.0); BG CARBOXYHEMOGLOBIN 0.3 % (0.5-1.5); BG DEOXYHEMOGLOBIN 1.5 % (0.0-5.0); BG FRACTION INSPIRED OXYGEN 100; BG HCO3 ACT 23.7 mmol/L (22.0-26.0); BG METHEMOGLOBIN 0.3 % (0.0-1.5); BG OXYGEN SATURATION 98.5 % (92.0-98.5); BG OXYHEMOGLOBIN 97.9 % (94.0-97.0); BG PCO2 44.7 mmHg (35.0-45.0); BG PH 7.343 (7.350-7.450); BG PO2 189.8 mmHg (75.0-100.0); BG SAMPLE SITE LEFT RADIAL; BG TOTAL HEMOGLOBIN 8.1 g/dL (12.0-18.0); BG VENT MODE VENT - AC
[2020-08-17 15:58] LABS: PLATELET ESTIMATE NORMAL
[2020-08-17] MEDS: LEVOFLOXACIN 250MG PREMIX 50 ML IV SCH (17:08)
[2020-08-18] VITALS (97 sets, daily range): BP systolic 103–151; BP diastolic 49–77
[2020-08-18] MEDS: IPRATROPIUM/ALBUTEROL 0.5-3(2.5)MG/3ML NEB HHN SCH ×4 (00:48→21:21)
[2020-08-18] MEDS: PROPOFOL 10MG/ML 100ML 100 ML IV PRN ×5 (01:21→18:47)
[2020-08-18] MEDS: METHYLPREDNISOLONE SOD SUCC 40 MG/ML VIAL IV SCH ×2 (02:26→14:50)
[2020-08-18] MEDS: DILTIAZEM HCL 30MG TABLET PO SCH ×4 (02:26→20:11)
[2020-08-18] MEDS: FENTANYL CITRATE/PF 2,500 MCG in SODIUM CHLORIDE 0.9% 200 ML IV PRN ×3 (03:17→16:32)
[2020-08-18] MEDS: CALCIUM ACETATE 667MG CAPSULE PO SCH ×3 (05:01→16:30)
[2020-08-18 05:38] LABS: HEMATOCRIT. 27.5 % (36.0-48.0); HEMOGLOBIN. 9.2 g/dL (12.0-16.0); MEAN CORPUSCULAR HEMOGLOBIN 30.6 pg (28.0-32.0); MEAN CORPUSCULAR VOLUME 91.7 fL (81.0-99.0); MEAN PLATELET VOLUME 9.1 fl (7.4-10.4); PLATELET 194 x1000/uL (130-400); RED CELL DISTRIBUTION WIDTH 15.5 % (11.6-14.6)
[2020-08-18] MEDS: MIDAZOLAM 100MG/100ML PMX 100 ML IV PRN ×3 (06:42→18:46)
[2020-08-18] MEDS: METOPROLOL TARTRATE 50MG TABLET GT SCH ×2 (09:01→20:53)
[2020-08-18] MEDS: LACTULOSE 20G/30ML UDC NG SCH (09:01)
[2020-08-18 12:05] LABS: PLATELET ESTIMATE NORMAL
[2020-08-18 13:10] LABS: BG BASE EXCESS -4.1 mmol/L (-2.0-2.0); BG CARBOXYHEMOGLOBIN 0.3 % (0.5-1.5); BG DEOXYHEMOGLOBIN 4.3 % (0.0-5.0); BG FRACTION INSPIRED OXYGEN 100; BG METHEMOGLOBIN 0.3 % (0.0-1.5); BG OXYGEN SATURATION 95.7 % (92.0-98.5); BG OXYHEMOGLOBIN 95.1 % (94.0-97.0); BG PCO2 44.9 mmHg (35.0-45.0); BG PH 7.309 (7.350-7.450); BG PO2 90.9 mmHg (75.0-100.0); BG SAMPLE SITE LEFT RADIAL; BG TOTAL HEMOGLOBIN 10.4 g/dL (12.0-18.0); BG VENT MODE VENT - AC
[2020-08-18] MEDS: LEVOFLOXACIN 250MG PREMIX 50 ML IV SCH (16:30)
[2020-08-18] MEDS ORDERED: CALCIUM GLUCONATE 1GM PREMIX 50 ML IV NR (20:00)
[2020-08-19] VITALS (92 sets, daily range): BP systolic 50–159; BP diastolic 30–114
[2020-08-19] MEDS: PROPOFOL 10MG/ML 100ML 100 ML IV PRN ×5 (00:33→20:19)
[2020-08-19] MEDS: MIDAZOLAM 100MG/100ML PMX 100 ML IV PRN ×4 (00:57→15:31)
[2020-08-19] MEDS: FENTANYL CITRATE/PF 2,500 MCG in SODIUM CHLORIDE 0.9% 200 ML IV PRN ×3 (02:34→17:22)
[2020-08-19] MEDS: METHYLPREDNISOLONE SOD SUCC 40 MG/ML VIAL IV SCH ×2 (02:50→15:10)
[2020-08-19] MEDS: IPRATROPIUM/ALBUTEROL 0.5-3(2.5)MG/3ML NEB HHN SCH ×5 (03:53→23:51)
[2020-08-19 06:20] LABS: HEMATOCRIT. 24.5 % (36.0-48.0); MEAN CORPUSCULAR HEMOGLOBIN 30.4 pg (28.0-32.0); MEAN CORPUSCULAR VOLUME 92.9 fL (81.0-99.0); MEAN PLATELET VOLUME 8.7 fl (7.4-10.4); PLATELET 158 x1000/uL (130-400); RED BLOOD CELL COUNT 2.64 mill/uL (4.2-5.4); RED CELL DISTRIBUTION WIDTH 15.3 % (11.6-14.6)
[2020-08-19] MEDS: CALCIUM ACETATE 667MG CAPSULE PO SCH ×3 (06:42→17:20)
[2020-08-19] MEDS: LACTULOSE 20G/30ML UDC NG SCH (08:22)
[2020-08-19] MEDS: METOPROLOL TARTRATE 50MG TABLET GT SCH ×2 (08:22→20:19)
[2020-08-19] MEDS: NOREPINEPHRINE 8 MG in DEXTROSE 5% WATER 250 ML IV PRN ×3 (10:00→12:33)
[2020-08-19 10:17] LABS: PLATELET ESTIMATE NORMAL
[2020-08-19] MEDS ORDERED: CALCIUM GLUCONATE 2,000 MG in DEXT 5% WATER 100 ML IV SCH (13:00)
[2020-08-19] MEDS: LEVOFLOXACIN 250MG PREMIX 50 ML IV SCH (15:11)
[2020-08-19] MEDS: NOREPINEPHRINE 32 MG in DEXT 5% WATER 218 ML IV PRN (17:21)
[2020-08-19] MEDS ORDERED: PROPOFOL 10MG/ML 100ML 100 ML IV PRN (19:15)
[2020-08-19] MEDS: ACETAMINOPHEN 650MG/20.3ML UDC PO PRN (21:06)
[2020-08-20] VITALS (37 sets, daily range): BP systolic 88–140; BP diastolic 29–106
[2020-08-20] MEDS: MIDAZOLAM 100MG/100ML PMX 100 ML IV PRN ×2 (00:17→07:11)
[2020-08-20] MEDS: PROPOFOL 10MG/ML 100ML 100 ML IV PRN ×2 (00:42→05:52)
[2020-08-20] MEDS: FENTANYL CITRATE/PF 2,500 MCG in SODIUM CHLORIDE 0.9% 200 ML IV PRN ×2 (02:08→09:37)
[2020-08-20] MEDS: METHYLPREDNISOLONE SOD SUCC 40 MG/ML VIAL IV SCH ×2 (02:46→15:48)
[2020-08-20] MEDS: CALCIUM ACETATE 667MG CAPSULE PO SCH ×3 (05:52→17:20)
[2020-08-20] MEDS: NOREPINEPHRINE 32 MG in DEXT 5% WATER 218 ML IV PRN ×3 (08:09→17:21)
[2020-08-20] MEDS: LACTULOSE 20G/30ML UDC NG SCH (08:09)
[2020-08-20] MEDS: METOPROLOL TARTRATE 50MG TABLET GT SCH (08:09)
[2020-08-20] MEDS: IPRATROPIUM/ALBUTEROL 0.5-3(2.5)MG/3ML NEB HHN SCH ×2 (08:37→14:35)
[2020-08-20] MEDS: PHENYLEPHRINE 100 MG in DEXT 5% WATER 240 ML IV PRN ×3 (09:35→17:22)
[2020-08-20 09:51] LABS: HEMATOCRIT. 30.7 % (36.0-48.0); HEMOGLOBIN. 9.5 g/dL (12.0-16.0); MEAN CORPUSCULAR HEMOGLOBIN 31.5 pg (28.0-32.0); MEAN CORPUSCULAR VOLUME 101.6 fL (81.0-99.0); MEAN PLATELET VOLUME 9.9 fl (7.4-10.4); RED BLOOD CELL COUNT 3.03 mill/uL (4.2-5.4); RED CELL DISTRIBUTION WIDTH 17.6 % (11.6-14.6)
[2020-08-20] MEDS: VASOPRESSIN 20 UNIT in SODIUM CHLORIDE 0.9% 99 ML IV PRN ×2 (10:28→12:19)
[2020-08-20] MEDS: DOPAMINE 400MG/250ML PREMIX 250 ML IV PRN ×3 (10:30→15:49)
[2020-08-20] MEDS ORDERED: SODIUM BICARBONATE 8.4% 1 MEQ/ML 50ML SYR IV NR ×4 (10:30→16:45)
[2020-08-20] MEDS ORDERED: CALCIUM GLUCONATE 1GM PREMIX 50 ML IV NR (12:30)
[2020-08-20] MEDS ORDERED: SODIUM BICARBONATE 150 MEQ in DEXTROSE 5% WATER 850 ML IV SCH (12:30)
[2020-08-20 12:31] LABS: NUCLEATED RED BLOOD CELLS 8 /100 WBC
[2020-08-20 12:32] LABS: PLATELET ESTIMATE MARKEDLY DECREASED
[2020-08-20 12:33] LABS: PLATELET 49 x1000/uL (130-400)
[2020-08-20] MEDS ORDERED: DEXTROSE 50% WATER 50ML SYRINGE IV NR ×2 (13:00→16:45)
[2020-08-20] MEDS ORDERED: INSULIN REGULAR (HUMULIN R) 300UNITS/3ML VIAL IV NR ×2 (13:00→16:45)
[2020-08-20] MEDS ORDERED: SODIUM POLYSTYRENE SULFONATE 15 G/60 ML BOT PO NR (14:30)
[2020-08-20] MEDS ORDERED: MEROPENEM 500 MG in SODIUM CHLORIDE 0.9% 50 ML IV SCH (15:00)
[2020-08-20] MEDS ORDERED: VANCOMYCIN 2,000 MG in DEXT 5% WATER 500 ML IV SCH (15:00)
[2020-08-20] MEDS: LEVOFLOXACIN 250MG PREMIX 50 ML IV SCH (15:49)
[2020-08-20] MEDS ORDERED: DEXTROSE 50% WATER 50ML SYRINGE IV ONE (18:00)
[2020-08-20] MEDS ORDERED: EPINEPHRINE 0.1MG/ML (1:10,000) 10ML SYR ONE (18:00)
[2020-08-20] MEDS ORDERED: CALCIUM CHLORIDE 1GM/10ML SYR IV ONE (18:00)
[2020-08-20] MEDS ORDERED: SODIUM BICARBONATE 8.4% 1 MEQ/ML 50ML SYR IV ONE (18:00)
[2020-08-20] MEDS ORDERED: ATROPINE SULFATE 1MG/10ML SYR ONE (18:00)
== END 2020-08-20 18:36 | DRG 720 ==
LOC: ER 05:36 → MICUSO 14:56
PROVIDERS: ADMIT Internal Medicine; ATTEND Internal Medicine
PROC: 0PSKXZZ Reposition Right Ulna, External Approach (ICD-10-PCS; 2020-07-19)
PROC: 0BH17EZ Insertion of Endotracheal Airway into Trachea, Via Natural or Artificial Opening (ICD-10-PCS; 2020-07-19)
PROC: 5A1945Z Respiratory Ventilation, 24-96 Consecutive Hours (ICD-10-PCS; 2020-07-19)
PROC: 02HV33Z Insertion of Infusion Device into Superior Vena Cava, Percutaneous Approach (ICD-10-PCS; 2020-07-20)
PROC: B548ZZA Ultrasonography of Superior Vena Cava, Guidance (ICD-10-PCS; 2020-07-20)
PROC: 5A1955Z Respiratory Ventilation, Greater than 96 Consecutive Hours (ICD-10-PCS; principal; 2020-07-23)
PROC: 0BH17EZ Insertion of Endotracheal Airway into Trachea, Via Natural or Artificial Opening (ICD-10-PCS; 2020-07-23)
PROC: 5A12012 Performance of Cardiac Output, Single, Manual (ICD-10-PCS; 2020-07-25)
PROC: 02HV33Z Insertion of Infusion Device into Superior Vena Cava, Percutaneous Approach (ICD-10-PCS; 2020-08-08)
PROC: 5A1D70Z Performance of Urinary Filtration, Intermittent, Less than 6 Hours Per Day (ICD-10-PCS; 2020-08-09)
PROC: 5A1D70Z Performance of Urinary Filtration, Intermittent, Less than 6 Hours Per Day (ICD-10-PCS; 2020-08-11)
PROC: 5A1D70Z Performance of Urinary Filtration, Intermittent, Less than 6 Hours Per Day (ICD-10-PCS; 2020-08-14)
PROC: 5A1D70Z Performance of Urinary Filtration, Intermittent, Less than 6 Hours Per Day (ICD-10-PCS; 2020-08-16)
DX: A41.89 Other specified sepsis (principal); U07.1 COVID-19; J12.82 Pneumonia due to coronavirus disease 2019; E87.2 Acidosis; F17.210 Nicotine dependence, cigarettes, uncomplicated; S53.104A Unspecified dislocation of right ulnohumeral joint, initial encounter; F19.10 Other psychoactive substance abuse, uncomplicated; S52.271A Monteggia's fracture of right ulna, initial encounter for closed fracture; E86.0 Dehydration; J80 Acute respiratory distress syndrome; R57.9 Shock, unspecified; I46.9 Cardiac arrest, cause unspecified; R74.01 Elevation of levels of liver transaminase levels; Z20.822 Contact with and (suspected) exposure to COVID-19; E66.9 Obesity, unspecified; E87.5 Hyperkalemia; G93.1 Anoxic brain damage, not elsewhere classified; I48.0 Paroxysmal atrial fibrillation; M62.82 Rhabdomyolysis; N17.0 Acute kidney failure with tubular necrosis; T38.0X5A Adverse effect of glucocorticoids and synthetic analogues, initial encounter; Z16.21 Resistance to vancomycin; S52.201A Unspecified fracture of shaft of right ulna, initial encounter for closed fracture; W18.39XA Other fall on same level, initial encounter; I12.9 Hypertensive chronic kidney disease with stage 1 through stage 4 chronic kidney disease, or unspecified chronic kidney disease; N18.9 Chronic kidney disease, unspecified; Z68.44 Body mass index [BMI] 60.0-69.9, adult; Y92.89 Other specified places as the place of occurrence of the external cause; Z99.11 Dependence on respirator [ventilator] status; Z99.2 Dependence on renal dialysis; Y93.89 Activity, other specified; Y92.149 Unspecified place in prison as the place of occurrence of the external cause; Y99.8 Other external cause status; B37.49 Other urogenital candidiasis; B95.2 Enterococcus as the cause of diseases classified elsewhere; B96.89 Other specified bacterial agents as the cause of diseases classified elsewhere; R60.1 Generalized edema
CPT/HCPCS: 36415; 36600; 71045; 71275; 73080; 73090; 74176; 76937; 80048; 80053; 80061; 80202; 80305; 80307; 80320; 80329; 81003; 82375; 82550; 82553; 82728; 82805; 82962; 83735; 83880; 84100; 84132; 84145; 84439; 84443; 84478; 84484; 84703; 85014; 85018; 85025; 85379; 86140; 86141; 86850; 86900; 87070; 87077; 87186; 87426; 93005; 93923; 93970; 94002; 94003; 94640; 99291; A6261; C1725; C1752; C1769; J0282; J0330; J0360; J0461; J0610; J0696; J1100; J1265; J1630; J1650; J1815; J1940; J1956; J2060; J2185; J2250; J2270; J2370; J2405; J2543; J2704; J2920; J3010; J3370; J3480; J3490; J7030; J7040; J7050; J7060; J7070; J7131; P9047; U0003; G0480